=== PATIENT | male | born 1965 | race American Indian/Alaskan Native ===

== ENCOUNTER 2018-05-29 05:27 | Inpatient (IN) | payer MEDICAID, SELFPAY ==
[2018-05-29 05:33] VITALS: BMI 31.9
[2018-05-29] MEDS ORDERED: Albuterol-Ipratrop 3 mg / 0.5 (3 ml) UD IH STA (05:53)
--- NOTE | 2018-05-29 05:57 | ED PDOC ---
Arrival/HPI - General Chief Complaint: Shortness Of Breath Time Seen by Provider: 05/29/18 05:29 Historian: Patient - History of Present Illness Narrative History of Present Illness (Text): 05/29/18 05:50 Jaquan Oliva is a 52 year old male, whose past medical history includes asthma, COPD, hypertension, and anxiety, who presents to the Emergency department complaining of chest pain. Patient states he woke up this morning and began feeling dizzy with associated mid-sternal intermittent chest pain, shortness of breath, and diaphoresis. Patient reports a family history of cardiac disease and notes he has not had a stress test performed. Patient denies any fever, chills, nausea, vomiting, diarrhea, urinary symptoms, back pain, neck pain, headache, focal neurological deficits, or any other complaints. Symptom Onset: Gradual Symptom Course: Unchanged Activities at Onset: Light Context: Home Past Medical History - Provider Review Nursing Documentation Reviewed: Yes - Infectious Disease Hx of Infectious Diseases: None - Tetanus Immunization Tetanus Immunization: Unknown - Cardiac Hx Cardiac Disorders: Yes Hx Hypertension: Yes - Pulmonary Hx Respiratory Disorders: Yes Hx Asthma: Yes Hx Chronic Obstructive Pulmonary Disease (COPD): Yes Hx Emphysema: Yes - Musculoskeletal/Rheumatological Hx Falls: No - Psychiatric Hx Anxiety: Yes Hx Substance Use: No - Past Surgical History Past Surgical History: No Previous - Suicidal Assessment Feels Threatened In Home Enviroment: No Family/Social History - Physician Review Nursing Documentation Reviewed: Yes Family/Social History: Unknown Family HX Smoking Status: Light Smoker < 10 Cigarettes Daily Hx Alcohol Use: No Hx Substance Use: No Hx Substance Use Treatment: No Allergies/Home Meds Allergies/Adverse Reactions: Allergies No Known Allergies Allergy (Verified 05/29/18 05:33) Home Medications: Home Meds Medication Instructions Recorded Confirmed Aspirin [Adult Aspirin] 1 tab PO DAILY 05/29/18 05/29/18 Lisinopril [Zestril] 10 mg PO DAILY 05/29/18 05/29/18 cloNIDine [Catapres] 1 tab PO DAILY 05/29/18 05/29/18 Review of Systems - Physician Review All systems were reviewed & negative as marked: Yes - Review of Systems Constitutional: Normal. absent: Fevers Eyes: Normal ENT: Normal Respiratory: SOB Cardiovascular: Chest Pain Gastrointestinal: Normal. absent: Abdominal Pain, Diarrhea, Nausea, Vomiting Genitourinary Male: Normal. absent: Dysuria, Frequency, Hematuria, Urinary Output Changes Musculoskeletal: Normal. absent: Back Pain, Neck Pain Skin: Normal. absent: Rash Neurological: Dizziness Endocrine: Diaphoresis Hemo/Lymphatic: Normal Psychiatric: Normal Physical Exam Vital Signs Reviewed: Yes Temperature: Afebrile Blood Pressure: Normal Pulse: Regular Respiratory Rate: Normal Appearance: Positive for: Well-Appearing, Non-Toxic, Comfortable Pain Distress: None Mental Status: Positive for: Alert and Oriented X 3 - Systems Exam Head: Present: Atraumatic, Normocephalic Pupils: Present: PERRL Extroacular Muscles: Present: EOMI Conjunctiva: Present: Normal Mouth: Present: Moist Mucous Membranes Neck: Present: Normal Range of Motion Respiratory/Chest: Present: Wheezes (Wheezing bilaterally). No: Respiratory Distress, Accessory Muscle Use Cardiovascular: Present: Regular Rate and Rhythm, Normal S1, S2. No: Murmurs Abdomen: No: Tenderness, Distention, Peritoneal Signs Back: Present: Normal Inspection Upper Extremity: Present: Normal Inspection. No: Cyanosis, Edema Lower Extremity: Present: Normal Inspection. No: Edema Neurological: Present: GCS=15, CN II-XII Intact, Speech Normal Skin: Present: Warm, Dry, Normal Color. No: Rashes Psychiatric: Present: Alert, Oriented x 3, Normal Insight, Normal Concentration Medical Decision Making ED Course and Treatment: 05/29/18 05:50 Impression: 52 year old male complaining of chest pain, shortness of breath, dizziness, and diaphoresis. Plan: -- EKG -- Chest X-ray -- Labs, BNP, cardiac enzymes, D-dimer -- Duoneb -- Reassess and disposition Prior Visits: Notes and results from previous visits were reviewed. Progress Notes: Reviewed EKG, NSR at 84 bpm. Occasional PAC. Non-specific ST/T wave changes. 05/29/18 06:56 Patient Diff. DX includes cor insufficiency/COPD/Bronchitis.Given presenting complaints/risk factors will place on observation for further treatment/evaluation.Case endorsed to oncoming attending to endorse to hospitalist. - EKG Interpretation Interpreted by ED Physician: Yes Type: 12 lead EKG - Scribe Statement The provider has reviewed the documentation as recorded by the Damari Owens Provider Scribe Attestation: All medical record entries made by the Scribe were at my direction and personally dictated by me. I have reviewed the chart and agree that the record accurately reflects my personal performance of the history, physical exam, medical decision making, and the department course for this patient. I have also personally directed, reviewed, and agree with the discharge instructions and disposition. Disposition/Present on Arrival - Present on Arrival Any Indicators Present on Arrival: No History of DVT/PE: No History of Uncontrolled Diabetes: No Urinary Catheter: No History of Decub. Ulcer: No History Surgical Site Infection Following: None - Disposition Have Diagnosis and Disposition been Completed?: Yes Diagnosis: Chest pain, COPD (chronic obstructive pulmonary disease) Disposition: HOSPITALIZED Disposition Time: 06:56 Patient Problems: Current Active Problems Problem Status Onset COPD (chronic obstructive pulmonary disease) Acute Chest pain Acute Condition: STABLE Discharge Instructions (ExitCare): Chest Pain (ED) Referrals: Adam Richard MD [Primary Care Provider] - Follow up with primary Forms: [employer] (Arabic)
[2018-05-29 06:18] LABS: HEMOGLOBIN 14.3 g/dL (14.0-18.0); MEAN CELL VOLUME 84.9 fl (80.0-105.0); MEAN CORPUSCULAR HEMOGLOBIN 28.8 pg (25.0-35.0); RBC 4.96 10^6/uL (3.5-6.1); RED CELL DISTRIBUTION WIDTH 13.8 % (11.5-14.5); WHITE BLOOD COUNT 13.1 10^3/uL (4.5-11.0)
[2018-05-29 06:21] LABS: ALB/GLOB RATIO 1.4 (1.1-1.8); ALBUMIN 4.6 g/dL (3.0-4.8); ALT/SGPT 65 U/L (7-56); AST/SGOT 40 U/L (17-59); BLOOD UREA NITROGEN 17 mg/dL (7-21); CALCIUM 9.3 mg/dL (8.4-10.5); GFR NON-AFRICAN AMERICAN > 60
[2018-05-29 06:22] LABS: INR 1.01; PARTIAL THROMBOPLASTIN TIME 27.9 Seconds (25.1-36.5); PROTHROMBIN TIME 11.6 SECONDS (9.4-12.5)
[2018-05-29 06:26] LABS: D DIMER < 200 ng/mlDDU (0-243)
[2018-05-29 06:33] LABS: B-TYPE NATRIURETIC PEPTIDE 88.4 pg/mL (0-450); TROPONIN I 0.01 ng/mL
[2018-05-29 06:43] LABS: CK MB% 2.4 % (2.5-3.0)
--- NOTE | 2018-05-29 07:44 | CP.PCM.HP ---
<Shanon Johnson - Last Filed: 05/29/18 12:16> History of Present Illness - History of Present Illness History of Present Illness: Shanon Johnson, PGY2, H&P for Dr Diez: CC: chest pain 52 year old male with PMH asthma, COPD (requiring 2 prior intubations, last one 2013), HTN, anxiety, panic attacks, presents for left sided chest pain that started this morning. Patient states that he woke up from sleep for work this morning and the pain began 30 mins after waking up. Describes it as sharp, 5- 6/10, associated with mild dizziness, shortness of breath, tingling of her bilateral fingers. Denies syncope, palpitations, nausea, vomiting, abdominal pain, lower extremity edema. The episode lasted 5-10 mins. Denies association with exertion. Patient states that he has been having similar episodes for past 6 months. States that he possibly had a stress test many years ago and was "normal." Denies drinking any alcohol or other substances the previous night. States that he has been using his nebulizer often at home for past few days. States that he has been depressed the past few months due to his home situation with his partner and son. However, patient denies suicidal ideations. 12 point ROS obtained and negative, except as per HPI. 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 Smokes 4-5 ciggs/day for past 25 years. Social alcohol use. Denies drug use. Lives with partner, son. Pharmacy: [facility] Insurance: [employer] (Medicaid) Present on Admission - Present on Admission Any Indicators Present on Admission: No History of DVT/PE: No History of Uncontrolled Diabetes: No Urinary Catheter: No Decubitus Ulcer Present: No Review of Systems - Review of Systems All systems: reviewed and no additional remarkable complaints except Review of Systems: as per HPI Past Patient History - Infectious Disease Hx of Infectious Diseases: None - Tetanus Immunizations Tetanus Immunization: Unknown - Past Social History Smoking Status: Light Smoker < 10 Cigarettes Daily - CARDIAC Hx Cardiac Disorders: Yes Hx Hypertension: Yes - PULMONARY Hx Respiratory Disorders: Yes Hx Asthma: Yes Hx Chronic Obstructive Pulmonary Disease (COPD): Yes Hx Emphysema: Yes - MUSCULOSKELETAL/RHEUMATOLOGICAL Hx Falls: No - PSYCHIATRIC Hx Anxiety: Yes Hx Substance Use: No Meds Allergies/Adverse Reactions: Allergies Allergy/AdvReac Type Severity Reaction Status Date / Time No Known Allergies Allergy Verified 05/29/18 12:43 Physical Exam - Constitutional Appears: Non-toxic, No Acute Distress - Head Exam Head Exam: ATRAUMATIC, NORMOCEPHALIC - Eye Exam Eye Exam: EOMI, PERRL. absent: Conjunctival injection, Nystagmus, Scleral icterus - ENT Exam ENT Exam: Mucous Membranes Moist - Neck Exam Neck exam: Positive for: Full Rom - Respiratory Exam Respiratory Exam: Wheezes (bilateral, expiratory). absent: Accessory Muscle Use, Rhonchi, Respiratory Distress - Cardiovascular Exam Cardiovascular Exam: RRR, +S1, +S2. absent: Systolic Murmur - GI/Abdominal Exam GI & Abdominal Exam: Normal Bowel Sounds, Soft. absent: Diminished Bowel Sounds, Distended, Firm, Guarding, Rigid, Tenderness - Extremities Exam Extremities exam: Positive for: normal inspection. Negative for: calf tenderness, pedal edema - Back Exam Back exam: NORMAL INSPECTION - Neurological Exam Neurological exam: Alert, CN II-XII Intact, Oriented x3 - Psychiatric Exam Additional comments: drowsy - Skin Skin Exam: Normal Color, Warm Results - Vital Signs Recent Vital Signs: Last Vital Signs Temp 98 F 05/29/18 05:35 Pulse 87 05/29/18 05:35 Resp 20 05/29/18 05:40 BP 165/95 H 05/29/18 05:35 Pulse Ox 100 05/29/18 05:40 - Labs Result Diagrams: 05/29/18 05:50 05/29/18 05:50 Labs: Laboratory Results - last 24 hr 05/29/18 05/29/18 05/29/18 05:50 05:50 05:50 WBC 13.1 H RBC 4.96 Hgb 14.3 Hct 42.1 MCV 84.9 MCH 28.8 MCHC 34.0 RDW 13.8 Plt Count 327 MPV 10.0 PT 11.6 INR 1.01 APTT 27.9 D-Dimer, Quantitative < 200 Sodium 142 Potassium 3.9 Chloride 102 Carbon Dioxide 31 Anion Gap 13 BUN 17 Creatinine 0.8 Est GFR ( Amer) > 60 Est GFR (Non-Af Amer) > 60 POC Glucose (mg/dL) Random Glucose 127 H Calcium 9.3 Total Bilirubin 0.6 AST 40 ALT 65 H Alkaline Phosphatase 81 Lactate Dehydrogenase 719 H Total Creatine Kinase 412 H CK-MB (CK-2) 10.0 H CK-MB (CK-2) % 2.4 L Troponin I 0.01 NT-Pro-B Natriuret Pep 88.4 Total Protein 7.9 Albumin 4.6 Globulin 3.3 Albumin/Globulin Ratio 1.4 05/29/18 05:50 WBC RBC Hgb Hct MCV MCH MCHC RDW Plt Count MPV PT INR APTT D-Dimer, Quantitative Sodium Potassium Chloride Carbon Dioxide Anion Gap BUN Creatinine Est GFR ( Amer) Est GFR (Non-Af Amer) POC Glucose (mg/dL) 132 H Random Glucose Calcium Total Bilirubin AST ALT Alkaline Phosphatase Lactate Dehydrogenase Total Creatine Kinase CK-MB (CK-2) CK-MB (CK-2) % Troponin I NT-Pro-B Natriuret Pep Total Protein Albumin Globulin Albumin/Globulin Ratio Assessment & Plan - Assessment and Plan (Free Text) Assessment: 52 year old male with PMH COPD, HTN, anxiety, panic attacks, presents for chest pain, shortness of breath: Chest pain: likely anxiety vs pleuritic vs rule out ACS - initial troponin 0.01-<0.01, EKG shows HR 87, Occasional PAC. Non-specific ST/T wave changes. - f/u next troponin - lipid panel, TSH, Hgb A1C - Cardiology consulted. F/u recs. - d dimer negative - Remote tele monitoring Shortness of breath: 2/2 COPD exacerbation - Solumedrol 40 mg IV q 12 - pulmicort, brovana - duoneb q 4 lucius, and q6 prn - supplemental oxygen via nasal cannula - monitor Possible alcohol withdrawal: - CIWA protocol - ativan 0.5 mg prn - alcohol level negative - Multivitamin - will monitor Hx of HTN: - will stop IVF - continue home meds clonidine, lisinopril, ASA 81 mg Case seen and discussed with attending, Dr Diez. <Liset Diez - Last Filed: 05/29/18 15:02> Results - Vital Signs Recent Vital Signs: Last Vital Signs Temp 98.1 F 05/29/18 09:03 Pulse 99 H 05/29/18 11:46 Resp 16 05/29/18 11:22 BP 170/89 H 05/29/18 11:44 Pulse Ox 98 05/29/18 09:03 - Labs Result Diagrams: 05/29/18 05:50 05/29/18 05:50 Labs: Laboratory Results - last 24 hr 05/29/18 05/29/18 05/29/18 05:50 05:50 05:50 WBC 13.1 H RBC 4.96 Hgb 14.3 Hct 42.1 MCV 84.9 MCH 28.8 MCHC 34.0 RDW 13.8 Plt Count 327 MPV 10.0 PT 11.6 INR 1.01 APTT 27.9 D-Dimer, Quantitative < 200 pCO2 pO2 HCO3 ABG pH ABG Total CO2 ABG O2 Saturation ABG O2 Content ABG Base Excess ABG Hemoglobin ABG Carboxyhemoglobin POC ABG HHb (Measured) ABG Methemoglobin ABG O2 Capacity Hgb O2 Saturation FiO2 Sodium 142 Potassium 3.9 Chloride 102 Carbon Dioxide 31 Anion Gap 13 BUN 17 Creatinine 0.8 Est GFR ( Amer) > 60 Est GFR (Non-Af Amer) > 60 POC Glucose (mg/dL) Random Glucose 127 H Hemoglobin A1c Calcium 9.3 Total Bilirubin 0.6 AST 40 ALT 65 H Alkaline Phosphatase 81 Lactate Dehydrogenase 719 H Total Creatine Kinase 412 H CK-MB (CK-2) 10.0 H CK-MB (CK-2) % 2.4 L Troponin I 0.01 NT-Pro-B Natriuret Pep 88.4 Total Protein 7.9 Albumin 4.6 Globulin 3.3 Albumin/Globulin Ratio 1.4 Triglycerides Cholesterol LDL Cholesterol Direct HDL Cholesterol TSH 3rd Generation Alcohol, Quantitative 05/29/18 05/29/18 05/29/18 05:50 08:10 08:10 WBC RBC Hgb Hct MCV MCH MCHC RDW Plt Count MPV PT INR APTT D-Dimer, Quantitative pCO2 pO2 HCO3 ABG pH ABG Total CO2 ABG O2 Saturation ABG O2 Content ABG Base Excess ABG Hemoglobin ABG Carboxyhemoglobin POC ABG HHb (Measured) ABG Methemoglobin ABG O2 Capacity Hgb O2 Saturation FiO2 Sodium Potassium Chloride Carbon Dioxide Anion Gap BUN Creatinine Est GFR ( Amer) Est GFR (Non-Af Amer) POC Glucose (mg/dL) 132 H Random Glucose Hemoglobin A1c Calcium Total Bilirubin AST ALT Alkaline Phosphatase Lactate Dehydrogenase Total Creatine Kinase CK-MB (CK-2) CK-MB (CK-2) % Troponin I NT-Pro-B Natriuret Pep Total Protein Albumin Globulin Albumin/Globulin Ratio Triglycerides 83 Cholesterol 184 LDL Cholesterol Direct 95 HDL Cholesterol 62 H TSH 3rd Generation Alcohol, Quantitative < 10 05/29/18 05/29/18 05/29/18 08:10 09:23 11:35 WBC RBC Hgb Hct MCV MCH MCHC RDW Plt Count MPV PT INR APTT D-Dimer, Quantitative pCO2 55 H pO2 81.0 HCO3 29.7 H ABG pH 7.34 L ABG Total CO2 31.4 H ABG O2 Saturation 98.8 H ABG O2 Content 17.7 ABG Base Excess 2.6 ABG Hemoglobin 13.6 ABG Carboxyhemoglobin 5.9 H POC ABG HHb (Measured) 1.1 ABG Methemoglobin 0.8 ABG O2 Capacity 17.9 Hgb O2 Saturation 92.3 L FiO2 32.0 Sodium Potassium Chloride Carbon Dioxide Anion Gap BUN Creatinine Est GFR ( Amer) Est GFR (Non-Af Amer) POC Glucose (mg/dL) Random Glucose Hemoglobin A1c 6.1 Calcium Total Bilirubin AST ALT Alkaline Phosphatase Lactate Dehydrogenase Total Creatine Kinase CK-MB (CK-2) CK-MB (CK-2) % Troponin I < 0.01 NT-Pro-B Natriuret Pep Total Protein Albumin Globulin Albumin/Globulin Ratio Triglycerides Cholesterol LDL Cholesterol Direct HDL Cholesterol TSH 3rd Generation Alcohol, Quantitative 05/29/18 13:00 WBC RBC Hgb Hct MCV MCH MCHC RDW Plt Count MPV PT INR APTT D-Dimer, Quantitative pCO2 pO2 HCO3 ABG pH ABG Total CO2 ABG O2 Saturation ABG O2 Content ABG Base Excess ABG Hemoglobin ABG Carboxyhemoglobin POC ABG HHb (Measured) ABG Methemoglobin ABG O2 Capacity Hgb O2 Saturation FiO2 Sodium Potassium Chloride Carbon Dioxide Anion Gap BUN Creatinine Est GFR ( Amer) Est GFR (Non-Af Amer) POC Glucose (mg/dL) Random Glucose Hemoglobin A1c Calcium Total Bilirubin AST ALT Alkaline Phosphatase Lactate Dehydrogenase Total Creatine Kinase CK-MB (CK-2) CK-MB (CK-2) % Troponin I NT-Pro-B Natriuret Pep Total Protein Albumin Globulin Albumin/Globulin Ratio Triglycerides Cholesterol LDL Cholesterol Direct HDL Cholesterol TSH 3rd Generation 0.84 Alcohol, Quantitative Attending/Attestation - Attestation I have personally seen and examined this patient.: Yes I have fully participated in the care of the patient.: Yes I have reviewed all pertinent clinical information: Yes Notes (Text): 05/29/18 14:57 52 year old male with past medical history of COPD, hypertension, and anxiety who presents with complaint of chest pain and shortness of breath. Admitted for COPD exacerbation and to rule out ACS. Serial cardiac enzymes are ordered and cardiology evaluation is requested. Continue with iv steroids and duonebs. Continue with pulmicort and brovana. He was counselled on smoking and alcohol cessation. Liset Diez MD Hospitalist.
[2018-05-29] MEDS ORDERED: Sodium Chloride 0.9% 1,000 ML IV SCH (08:30)
[2018-05-29 08:49] LABS: HDL CHOLESTEROL 62 mg/dL (29-60)
[2018-05-29 09:00] LABS: LDL CHOLESTEROL 95 mg/dL (0-129)
[2018-05-29] MEDS ORDERED: MethylPREDNISolone 40 mg Vial IVP STA (09:14)
[2018-05-29] MEDS ORDERED: Albuterol-Ipratrop 3 mg / 0.5 (3 ml) UD IH SCH (09:15)
--- NOTE | 2018-05-29 09:16 | RAD ---
Date of service: 05/29/2018 HISTORY: Chest pain COMPARISON: No prior. FINDINGS: LUNGS: The lungs are well inflated and clear. PLEURA: No pleural effusions or pneumothorax. CARDIOVASCULAR: The heart is normal in size. No aortic atherosclerotic calcifications present. OSSEOUS STRUCTURES: Within normal limits for the patient's age. VISUALIZED UPPER ABDOMEN: Normal. OTHER FINDINGS: None. IMPRESSION: No active pulmonary disease.
[2018-05-29 09:46] LABS: ARTERIAL BLOOD GAS HCO3 29.7 mmol/L (21-28); ARTERIAL BLOOD GAS HEMOGLOBIN 13.6 g/dL (11.7-17.4); ARTERIAL BLOOD GAS O2 CAPACITY 17.9 mL/dl (16-24); ARTERIAL BLOOD GAS O2 CONTENT 17.7 ML/dl (15-23); ARTERIAL BLOOD GAS O2 SAT 98.8 % (95-98); ARTERIAL BLOOD GAS PCO2 55 mm/Hg (35-45); ARTERIAL BLOOD GAS PH 7.34 (7.35-7.45); ARTERIAL BLOOD GAS TCO2 31.4 mmol.L (22-28)
[2018-05-29] MEDS: Albuterol-Ipratrop 3 mg / 0.5 (3 ml) UD IH SCH ×3 (10:37→21:46)
--- NOTE | 2018-05-29 10:56 | CARD ---
APPROVED REPORT Date of service: 05/29/2018 EKG Measurement Heart [id number] <Conclusion> Sinus rhythm with premature atrial complexes Possible Left atrial enlargement Borderline ECG
[2018-05-29] MEDS ORDERED: Multivitamin Therapeutic Tab PO STA (11:34)
[2018-05-29] MEDS: Albuterol-Ipratrop 3 mg / 0.5 (3 ml) UD IH PRN (14:43)
--- NOTE | 2018-05-29 16:54 | CON ---
DATE: 05/29/2018 CARDIOLOGY CONSULTATION HISTORY: The patient is a 52-year-old male, who presents with shortness of breath secondary to asthma. The patient continues to be an active smoker. In addition, he complains of fleeting chest pain that goes as the patient states different parts of his chest. The patient has no previous myocardial infarction. No diabetes mellitus, but does suffer from hypertension, which he is on Zestril and Catapres. Currently, the patient is obtaining bronchodilators. His symptoms are predominately in the left shoulder at this time. SOCIAL HISTORY: He is an active smoker. REVIEW OF SYSTEMS: Fourteen-point review of systems is reviewed in detail. Other than these above symptoms, the patient is beginning to demand his benzodiazepines. PHYSICAL EXAMINATION: VITAL SIGNS: Blood pressure is 170/89, heart rates in the 90s. NECK: Negative JVD. LUNGS: Without rales. HEART: With S1, S2. EXTREMITIES: Without edema. EKG shows normal sinus rhythm with nonspecific ST-T changes. LABORATORY DATA: Hemoglobin is 14.3. Chemistries: Troponins are negative x2. BUN and creatinine unremarkable. Glucose is 127. IMPRESSION: 1. Asthma. 2. Questionable chronic obstructive pulmonary disease. 3. Nicotine addiction. 4. Hypertension. 5. Atypical chest pain symptoms, which are pleuritic in nature. There is no evidence for acute coronary syndrome. Given these findings, the patient's treatment needs to be directed at his bronchospasm. I have discussed with the patient about his need to stop smoking. We will continue on his clonidine as well as his Zestril for blood pressure control. Aj Olsen MD
[2018-05-29] MEDS: Budesonide 0.5 mg/2 ml Inhal Susp UD IH SCH (20:32)
[2018-05-29] MEDS ORDERED: Pneumococcal 23-Valent Vaccine IM ONE (20:37)
[2018-05-29] MEDS ORDERED: Influenza Vaccine 60 mcg/0.5 mL SYR (4YR UP) IM ONE (20:37)
[2018-05-29 21:04] LABS: BARBITURATES, UR NEGATIVE (NEGATIVE); BENZODIAZEPINES, UR POSITIVE (NEGATIVE); OPIATES, UR POSITIVE (NEGATIVE); PHENCYCLIDINE, UR NEGATIVE (NEGATIVE)
[2018-05-29] MEDS: MethylPREDNISolone 40 mg Vial IVP SCH (21:45)
[2018-05-29] MEDS: Arformoterol 15 mcg/2 ml Inh Sol IH SCH (21:46)
[2018-05-30] MEDS: Albuterol-Ipratrop 3 mg / 0.5 (3 ml) UD IH SCH ×7 (01:27→20:37)
[2018-05-30] MEDS: Albuterol-Ipratrop 3 mg / 0.5 (3 ml) UD IH PRN ×2 (01:57→17:37)
[2018-05-30] MEDS: Arformoterol 15 mcg/2 ml Inh Sol IH SCH ×3 (06:48→20:37)
[2018-05-30] MEDS: Budesonide 0.5 mg/2 ml Inhal Susp UD IH SCH ×3 (06:49→20:38)
[2018-05-30 07:30] LABS: GRAN # 7.41 (1.4-6.5); GRAN % 88.2 % (50.0-68.0); HEMOGLOBIN 13.7 g/dL (14.0-18.0); LYMPH # 0.8 (1.2-3.4); LYMPH % 9.3 % (22.0-35.0); MEAN CORPUSCULAR HEMOGLOBIN 28.2 pg (25.0-35.0); MEAN CORPUSCULAR HGB CONC 33.2 g/dl (31.0-37.0); MEAN PLATELET VOLUME 10.2 fl (7.0-11.0); MONO # 0.2 (0.1-0.6); MONO % 2.5 % (1.0-6.0); RBC 4.86 10^6/uL (3.5-6.1); WHITE BLOOD COUNT 8.4 10^3/uL (4.5-11.0)
[2018-05-30 08:06] LABS: ALB/GLOB RATIO 1.4 (1.1-1.8); ALBUMIN 4.5 g/dL (3.0-4.8); ALT/SGPT 54 U/L (7-56); AST/SGOT 28 U/L (17-59); BLOOD UREA NITROGEN 16 mg/dL (7-21); CALCIUM 9.7 mg/dL (8.4-10.5); GFR NON-AFRICAN AMERICAN > 60
[2018-05-30] MEDS: Multivitamin Therapeutic Tab PO SCH (09:24)
[2018-05-30] MEDS: MethylPREDNISolone 40 mg Vial IVP SCH ×2 (09:24→21:58)
[2018-05-30] MEDS ORDERED: Levalbuterol 1.25 MG/3 ML Inhal Soln UD IH STA (09:52)
--- NOTE | 2018-05-30 13:15 | CP.PCM.PN ---
<Juan J Kuhn - Last Filed: 05/30/18 13:11> Subjective - Date & Time of Evaluation Date of Evaluation: 05/30/18 Time of Evaluation: 08:00 - Subjective Subjective: Juan J Kuhn, PGY1 Medicine Progress Note for Dr. Diez Patient was seen and examined at bedside this morning. HR was 112 and BP noted to be 157/89 prior to interview. Otherwise, patient claimed he had some shortness of breath going to the restroom overnight. Patient still endorses sob during interview and low extremity numbness in the legs related to his herniated discs. Otherwise, denies cp, abdominal pain, n/v/d. Tolerating diet well. A full 12 point ROS was conducted and unremarkable except as stated above. Objective - Vital Signs/Intake and Output Vital Signs (last 24 hours): Temp Pulse Resp BP Pulse Ox 98.5 F 118 H 20 170/108 H 100 05/30/18 06:00 05/30/18 11:36 05/30/18 11:00 05/30/18 11:36 05/30/18 11:00 Intake and Output: 05/30/18 05/30/18 06:59 18:59 Intake Total 360 Balance 360 - Medications Medications: Current Medications Albuterol/Ipratropium (Duoneb 3 Mg/0.5 Mg (3 Ml) Ud) 3 ml IH [id number] PRN PRN Reason: Shortness of Breath Last Admin: 05/30/18 01:57 Dose: 3 ml Albuterol/Ipratropium (Duoneb 3 Mg/0.5 Mg (3 Ml) Ud) 3 ml IH [id number] [facility] Last Admin: 05/30/18 09:53 Dose: 3 ml Amlodipine Besylate (Norvasc) 5 mg PO DAILY [facility] Last Admin: 05/30/18 11:36 Dose: 5 mg Arformoterol Tartrate (Brovana) 15 mcg IH [id number] [facility] Last Admin: 05/30/18 08:17 Dose: 15 mcg Aspirin (Ecotrin) 81 mg PO DAILY [facility] Last Admin: 05/30/18 09:24 Dose: 81 mg Budesonide (Pulmicort Respules) 0.5 mg IH [id number] [facility] Last Admin: 05/30/18 08:17 Dose: 0.5 mg Clonidine HCl (Catapres) 0.2 mg PO BID [facility] Last Admin: 05/30/18 09:24 Dose: 0.2 mg Famotidine (Pepcid) 40 mg PO HS [facility] Ibuprofen (Motrin Tab) 200 mg PO Q6H PRN PRN Reason: Pain, moderate (4-7) Lisinopril (Zestril) 40 mg PO DAILY [facility] Last Admin: 05/30/18 09:26 Dose: 40 mg Lorazepam (Ativan) 0.5 mg IVP Q6H PRN; Protocol PRN Reason: Agitation Methylprednisolone (Solu-Medrol) 40 mg IVP Q12 [facility] Last Admin: 05/30/18 09:24 Dose: 40 mg Multivitamins (Thera Tab) 1 tab PO 0800 [facility] Last Admin: 05/30/18 09:24 Dose: 1 tab Nicotine (Nicoderm Cq) 1 patch TD DAILY [facility] Last Admin: 05/30/18 09:25 Dose: 1 patch - Labs Labs: 05/30/18 07:00 05/30/18 07:00 PT 11.6 SECONDS (9.4-12.5) 05/29/18 05:50 INR 1.01 05/29/18 05:50 APTT 27.9 Seconds (25.1-36.5) 05/29/18 05:50 - Constitutional Appears: No Acute Distress - Head Exam Head Exam: ATRAUMATIC, NORMAL INSPECTION, NORMOCEPHALIC - Eye Exam Eye Exam: EOMI, Normal appearance, PERRL - ENT Exam ENT Exam: Mucous Membranes Moist, Normal Exam - Respiratory Exam Respiratory Exam: Wheezes. absent: Accessory Muscle Use, Chest Wall Tenderness, Rales, Rhonchi - Cardiovascular Exam Cardiovascular Exam: RRR, +S1, +S2 - GI/Abdominal Exam GI & Abdominal Exam: Soft, Normal Bowel Sounds. absent: Tenderness - Extremities Exam Extremities Exam: Full ROM, Normal Capillary Refill, Normal Inspection. absent: Joint Swelling, Pedal Edema - Neurological Exam Neurological Exam: Alert, Awake, CN II-XII Intact, Normal Gait, Oriented x3 - Psychiatric Exam Psychiatric exam: Normal Affect, Normal Mood - Skin Skin Exam: Dry, Intact, Normal Color, Warm Assessment and Plan - Assessment and Plan (Free Text) Assessment: 52 year old male with PMH COPD, HTN, anxiety, panic attacks, herniated disc who presented to [facility] for chest pain and shortness of breath. Patient also found to be positive on drug screen for cocaine, benzos, and opiates. Plan: Chest pain and Tachycardia 2/2 cocaine use vs anxiety - r/o ACS - Counseled patient on importance of substance abuse cessation - c/w xanax 0.25 mg TID prn for anxiety - Cardiology is on consult. Appreciate recs - troponins negative x3 - Utox positive for opiates, benzos, and cocaine - No acute changes on EKG - lipid panel, TSH, Hgb A1C wnl - Remote tele monitoring SOB 2/2 COPD exacerbation - c/w Solumedrol 40 mg IV q 12, pulmicort, and brovana - c/w duoneb q 4 lucius, and q6 prn - Patient is still wheezing on exam and endorses shortness of breath - c/w supplemental oxygen via nasal cannula - c/w nicotine patch HTN - uncontrolled - added Norvasc 5mg - c/w home meds clonidine 0.2mg BID and Lisinopril 40mg daily - monitor BP Possible alcohol withdrawal: - CIWA protocol score 0 - Counseled on alcohol cessation - c/w ativan 0.5 mg q6 prn - alcohol level negative - c/w Multivitamin Diet: HHD GI ppx: pepcid Dispo: Continue to monitor patient on the floor. Case was discussed and reviewed with attending, Dr Diez. <Liset Diez - Last Filed: 05/30/18 17:05> Objective - Vital Signs/Intake and Output Vital Signs (last 24 hours): Temp Pulse Resp BP Pulse Ox 98.7 F 124 H 22 166/111 H 98 05/30/18 16:31 05/30/18 16:31 05/30/18 16:31 05/30/18 16:31 05/30/18 16:31 Intake and Output: 05/30/18 05/30/18 06:59 18:59 Intake Total 360 Balance 360 - Medications Medications: Current Medications Albuterol/Ipratropium (Duoneb 3 Mg/0.5 Mg (3 Ml) Ud) 3 ml IH [id number] PRN PRN Reason: Shortness of Breath Last Admin: 05/30/18 01:57 Dose: 3 ml Albuterol/Ipratropium (Duoneb 3 Mg/0.5 Mg (3 Ml) Ud) 3 ml IH [id number] [facility] Last Admin: 05/30/18 14:48 Dose: 3 ml Amlodipine Besylate (Norvasc) 5 mg PO DAILY [facility] Last Admin: 05/30/18 11:36 Dose: 5 mg Arformoterol Tartrate (Brovana) 15 mcg IH [id number] [facility] Last Admin: 05/30/18 08:17 Dose: 15 mcg Aspirin (Ecotrin) 81 mg PO DAILY [facility] Last Admin: 05/30/18 09:24 Dose: 81 mg Budesonide (Pulmicort Respules) 0.5 mg IH [id number] [facility] Last Admin: 05/30/18 08:17 Dose: 0.5 mg Clonidine HCl (Catapres) 0.3 mg PO BID [facility] Famotidine (Pepcid) 40 mg PO HS [facility] Ibuprofen (Motrin Tab) 200 mg PO Q6H PRN PRN Reason: Pain, moderate (4-7) Lisinopril (Zestril) 50 mg PO DAILY [facility] Lorazepam (Ativan) 0.5 mg IVP Q6H PRN; Protocol PRN Reason: Agitation Last Admin: 05/30/18 14:23 Dose: 0.5 mg Lorazepam (Ativan) 1 mg IVP Q6H PRN; Protocol PRN Reason: Anxiety Methylprednisolone (Solu-Medrol) 40 mg IVP Q12 [facility] Last Admin: 05/30/18 09:24 Dose: 40 mg Multivitamins (Thera Tab) 1 tab PO 0800 [facility] Last Admin: 05/30/18 09:24 Dose: 1 tab Nicotine (Nicoderm Cq) 1 patch TD DAILY [facility] Last Admin: 05/30/18 09:25 Dose: 1 patch - Labs Labs: 05/30/18 07:00 05/30/18 07:00 PT 11.6 SECONDS (9.4-12.5) 05/29/18 05:50 INR 1.01 05/29/18 05:50 APTT 27.9 Seconds (25.1-36.5) 05/29/18 05:50 Attending/Attestation - Attestation I have personally seen and examined this patient.: Yes I have fully participated in the care of the patient.: Yes I have reviewed all pertinent clinical information, including history, physical exam and plan: Yes Notes (Text): 05/30/18 17:02 52 year old male with past medical history of COPD, hypertension, and anxiety who presented with complaint of chest pain and shortness of breath. Admitted for COPD exacerbation and started on duonebs with iv steroids. Serial cardiac enzymes were negative and ACS has been ruled out. Today he still complains of dysnea with minimal exertion. Cardiology is following and ordered echocardiogram. He is hypertensive and tachycardic, possibly secondary to withdrawal. Urine drug screen was positive for cocaine, opiates and benzodiazepines. He is on ativan prn. Lisinopril and clonidine doses were increased today. He was counselled on smoking and alcohol cessation. He was counselled on risks of continued substance abuse, although he denies use of. Liset Diez MD Hospitalist.
--- NOTE | 2018-05-30 13:17 | CARD ---
APPROVED REPORT Date of service: 05/30/2018 EKG Measurement Heart [id number] <Conclusion> Sinus tachycardia Possible Left atrial enlargement Nonspecific ST and T wave abnormality Abnormal ECG
--- NOTE | 2018-05-30 17:37 | CARD ---
APPROVED REPORT Date of service: 05/30/2018 EXAM: Two-dimensional and M-mode echocardiogram with Doppler and color Doppler. INDICATION Dyspnea 2D DIMENSIONS Left Atrium (2D)3.6 (1.6-4.0cm)IVSd1.1 (0.7-1.1cm) LVDd3.7 (3.9-5.9cm)PWd1.3 (0.7-1.1cm) LVDs2.5 (2.5-4.0cm)FS (%) 31.7 % LVEF (%)60.6 (>50%) M-Mode DIMENSIONS Aortic Root3.40 (2.2-3.7cm)Aortic Cusp Exc.2.00 (1.5-2.0cm) Aortic Valve AoV Peak Jicceoti021.0cm/[place] Peak GR.12mmHgLVOT Peak Yhzjovzh359.0cm/s LVOT VTI21.60cm Mitral Valve MV E Ybbrusse48.5cm/sMV A Kthtrpil818.0cm/sE/A ratio0.6 TDI Lateral E' Peak V8.97cm/sMedial E' Peak V9.55cm/sE/Lateral E'10.3 E/Medial E'9.7 Pulmonary Valve PV Peak Xnbzhvhn22.8cm/sPV Peak Grad.4mmHg Tricuspid Valve TR Peak Xfwubpoc692ab/sRAP GQMEGRLQ29pkIyVD Peak Gr.35mmHg VOKS27kfPk LEFT VENTRICLE The left ventricle is normal size. There is normal left ventricular wall thickness. The left ventricular function is normal. The left ventricular ejection fraction is within the normal range. There is normal LV segmental wall motion. Transmitral Doppler flow pattern is Grade I-abnormal relaxation pattern. RIGHT VENTRICLE The right ventricle is normal size. There is normal right ventricular wall thickness. The right ventricular systolic function is normal. ATRIA The left atrium size is normal. The right atrium size is normal. AORTIC VALVE The aortic valve is not well visualized and it may be bicuspid. No aortic regurgitation is present. There is no aortic valvular stenosis. MITRAL VALVE The mitral valve is normal in structure. There is no mitral valve regurgitation noted. There is no mitral valve stenosis. TRICUSPID VALVE There is mild tricuspid regurgitation. There is mild to moderate pulmonary hypertension. PULMONIC VALVE The pulmonary valve is normal in structure. GREAT VESSELS The aortic root is normal in size. The IVC is normal in size and collapses >50% with inspiration. PERICARDIAL EFFUSION There is a small loculated anterior pericardial effusion. <Conclusion> There is normal left ventricular wall thickness. The left ventricular function is normal. The left ventricular ejection fraction is within the normal range. There is normal LV segmental wall motion. Transmitral Doppler flow pattern is Grade I-abnormal relaxation pattern. There is mild tricuspid regurgitation. There is mild to moderate pulmonary hypertension.
[2018-05-31] MEDS: Albuterol-Ipratrop 3 mg / 0.5 (3 ml) UD IH SCH ×7 (00:33→23:56)
[2018-05-31 02:21] LABS: URINE BILIRUBIN NEGATIVE (NEGATIVE); URINE BLOOD TRACE-INTACT (NEGATIVE); URINE GLUCOSE (UA) NEGATIVE (NEGATIVE); URINE LEUKOCYTE ESTERASE NEGATIVE Leu/uL (NEGATIVE); URINE PROTEIN NEGATIVE mg/dL (<30 mg/dL); URINE UROBILINOGEN 0.2 E.U./dL (<1 E.U./dL)
[2018-05-31 02:26] LABS: URINE APPEARANCE CLEAR (CLEAR); URINE COLOR YELLOW (YELLOW)
[2018-05-31 02:34] LABS: URINE EPITHELIAL CELLS 0 - 2 /hpf (0-5); URINE RBC 0 - 2 /hpf (0-2); URINE WBC 0 - 2 /hpf (0-6)
[2018-05-31 06:51] LABS: GRAN # 5.34 (1.4-6.5); GRAN % 79.1 % (50.0-68.0); HEMOGLOBIN 12.9 g/dL (14.0-18.0); LYMPH % 15.4 % (22.0-35.0); MEAN CELL VOLUME 84.2 fl (80.0-105.0); MEAN CORPUSCULAR HEMOGLOBIN 28.2 pg (25.0-35.0); MEAN CORPUSCULAR HGB CONC 33.5 g/dl (31.0-37.0); MONO # 0.4 (0.1-0.6); MONO % 5.5 % (1.0-6.0); RBC 4.57 10^6/uL (3.5-6.1); RED CELL DISTRIBUTION WIDTH 14.1 % (11.5-14.5); WHITE BLOOD COUNT 6.8 10^3/uL (4.5-11.0)
[2018-05-31 07:03] LABS: ALB/GLOB RATIO 1.4 (1.1-1.8); ALT/SGPT 46 U/L (7-56); AST/SGOT 31 U/L (17-59); BLOOD UREA NITROGEN 15 mg/dL (7-21); CALCIUM 9.2 mg/dL (8.4-10.5); GFR NON-AFRICAN AMERICAN > 60
[2018-05-31] MEDS: Budesonide 0.5 mg/2 ml Inhal Susp UD IH SCH ×2 (07:57→19:41)
[2018-05-31] MEDS: Arformoterol 15 mcg/2 ml Inh Sol IH SCH ×2 (07:57→19:41)
--- NOTE | 2018-05-31 08:21 | PN ---
DATE: 05/30/2018 CARDIOLOGY FOLLOWUP SUBJECTIVE: The patient denies chest pain, but continues to complain of shortness of breath. PHYSICAL EXAMINATION: VITAL SIGNS: Blood pressure is 167/110, heart rate is 100. NECK: Negative JVD. LUNGS: Bilateral rhonchi. HEART: Reveals S1, S2. EXTREMITIES: Without edema. LABORATORY DATA: White count is 8.4, hemoglobin is 13.7. Troponins are negative x2. IMPRESSION: 1. Dyspnea. 2. Hypertension. 3. Chronic obstructive pulmonary disease. 4. Nicotine addiction. 5. Resolution of chest pain. Given these findings, there is no evidence for acute coronary syndrome. The patient needs treatment for his bronchospasm. We will increase his clonidine to 0.3 b.i.d. The patient will need referral to a detox center to help with his multiple drug usage. We will obtain an echocardiogram to evaluate LV function. Aj Olsen MD
[2018-05-31] MEDS: Multivitamin Therapeutic Tab PO SCH (09:52)
[2018-05-31] MEDS: MethylPREDNISolone 40 mg Vial IVP SCH ×2 (09:52→21:13)
--- NOTE | 2018-05-31 17:02 | CP.PCM.PN ---
<Shanon Johnson - Last Filed: 05/31/18 16:59> Subjective - Date & Time of Evaluation Date of Evaluation: 05/31/18 Time of Evaluation: 14:00 - Subjective Subjective: Shanon Johnson, PGY2, Medicine Progress Note for Dr Diez: Patient seen and examined at bedside. Around 6 PM yesterday, patient had an episode of anxiety, diaphoresis, high BP requiring clonidine 0.3 mg and ativan 2 mg IV. This morning, patient states that he feels better. Denies chest pain, nausea, vomiting, fevers, chills, shortness of breath at rest. Though, patient does report that he get short of breath upon ambulating from the his bed to the bathroom and states he "wants home oxygen." Objective - Vital Signs/Intake and Output Vital Signs (last 24 hours): Temp Pulse Resp BP Pulse Ox 98.2 F 107 H 98 H 147/94 H 96 05/31/18 08:17 05/31/18 10:00 05/31/18 08:17 05/31/18 09:52 05/30/18 18:21 Intake and Output: 05/31/18 05/31/18 06:59 18:59 Intake Total 1560 Balance 1560 - Medications Medications: Current Medications Albuterol/Ipratropium (Duoneb 3 Mg/0.5 Mg (3 Ml) Ud) 3 ml IH [id number] PRN PRN Reason: Shortness of Breath Last Admin: 05/30/18 17:37 Dose: 3 ml Albuterol/Ipratropium (Duoneb 3 Mg/0.5 Mg (3 Ml) Ud) 3 ml IH [id number] [facility] Last Admin: 05/31/18 15:40 Dose: 3 ml Amlodipine Besylate (Norvasc) 5 mg PO STAT [facility] Stop: 05/31/18 16:58 Amlodipine Besylate (Norvasc) 10 mg PO DAILY [facility] Arformoterol Tartrate (Brovana) 15 mcg IH [id number] [facility] Last Admin: 05/31/18 07:57 Dose: 15 mcg Aspirin (Ecotrin) 81 mg PO DAILY [facility] Last Admin: 05/31/18 09:52 Dose: 81 mg Budesonide (Pulmicort Respules) 0.5 mg IH [id number] [facility] Last Admin: 05/31/18 07:57 Dose: 0.5 mg Clonidine HCl (Catapres) 0.3 mg PO BID [facility] Last Admin: 05/31/18 09:50 Dose: 0.3 mg Famotidine (Pepcid) 40 mg PO HS [facility] Last Admin: 05/30/18 21:57 Dose: 40 mg Ibuprofen (Motrin Tab) 200 mg PO Q6H PRN PRN Reason: Pain, moderate (4-7) Last Admin: 05/30/18 17:04 Dose: 200 mg Lisinopril (Zestril) 50 mg PO DAILY [facility] Last Admin: 05/31/18 09:51 Dose: 50 mg Lorazepam (Ativan) 1 mg IVP Q6H PRN; Protocol PRN Reason: Anxiety Last Admin: 05/31/18 14:22 Dose: 1 mg Methylprednisolone (Solu-Medrol) 30 mg IVP Q12 [facility] Multivitamins (Thera Tab) 1 tab PO 0800 [facility] Last Admin: 05/31/18 09:52 Dose: 1 tab Nicotine (Nicoderm Cq) 1 patch TD DAILY [facility] Last Admin: 05/31/18 09:53 Dose: 1 patch - Labs Labs: 05/31/18 06:25 05/31/18 06:25 PT 11.6 SECONDS (9.4-12.5) 05/29/18 05:50 INR 1.01 05/29/18 05:50 APTT 27.9 Seconds (25.1-36.5) 05/29/18 05:50 - Constitutional Appears: Non-toxic, No Acute Distress - Head Exam Head Exam: ATRAUMATIC, NORMOCEPHALIC - Eye Exam Eye Exam: EOMI, PERRL. absent: Conjunctival injection, Nystagmus, Scleral icterus Pupil Exam: NORMAL ACCOMODATION, PERRL. absent: Miosis, Mydriatic, Unequal - ENT Exam ENT Exam: Mucous Membranes Moist - Neck Exam Neck Exam: Full ROM - Respiratory Exam Respiratory Exam: Wheezes (mild expiratory wheezes on R lung) - Cardiovascular Exam Cardiovascular Exam: Tachycardia, RRR, +S1, +S2. absent: Murmur - GI/Abdominal Exam GI & Abdominal Exam: Soft, Normal Bowel Sounds. absent: Firm, Guarding, Rigid, Tenderness, Mass - Extremities Exam Extremities Exam: absent: Calf Tenderness, Pedal Edema - Back Exam Back Exam: NORMAL INSPECTION. absent: CVA tenderness (L), CVA tenderness (R) - Neurological Exam Neurological Exam: Alert, Awake, Oriented x3 - Psychiatric Exam Psychiatric exam: Anxious - Skin Skin Exam: Dry, Normal Color, Warm Assessment and Plan - Assessment and Plan (Free Text) Assessment: 52 year old male with PMH COPD, HTN, anxiety, panic attacks, presents for chest pain, shortness of breath. COPD exacerbation treated with solumedrol, duonebs lucius and prn. Troponins have been negativex3, with no EKG changes, ACS has been ruled out by Cardiology. Patient's UDS positive for cocaine, opiates and benzodiazepines. Patient is withdrawing from these agents, giving ativan prn: Chest pain: likely anxiety, pleurisy, ruled out ACS - Cardiology consult appreciated, signed off. - Echo normal EF. Grade 1 diastolic dysfunction. mild to moderate pulm HTN. - continue treatment of COPD, withdrawals COPD exacerbation: - continue with solumedrol 30 q 12, duonebs lucius and prn, pulmicort, brovana - PT eval recommends no oxygen. will wean him off NC. - monitor Polysubstance abuse: - recommended to stop usage, patient states that he will try to quit. - Ativan 1 mg q 6 IV prn - clonidine 0.3 mg bid - monitor Hx of HTN: - BP high, secondary to likely withdrawal - ASA 81 mg - clonidine 0.3 mg bid - lisinopril 50 mg daily - increased norvasc to 10 mg daily - monitor PPX: Pepcid Patient ambulating in hallway. Case seen and discussed with attending, Dr Diez. <Liset Diez - Last Filed: 05/31/18 17:47> Objective - Vital Signs/Intake and Output Vital Signs (last 24 hours): Temp Pulse Resp BP Pulse Ox 98.2 F 100 H 98 H 146/98 H 96 05/31/18 08:17 05/31/18 17:12 05/31/18 08:17 05/31/18 17:12 05/30/18 18:21 Intake and Output: 05/31/18 05/31/18 06:59 18:59 Intake Total 1560 Balance 1560 - Medications Medications: Current Medications Albuterol/Ipratropium (Duoneb 3 Mg/0.5 Mg (3 Ml) Ud) 3 ml IH [id number] PRN PRN Reason: Shortness of Breath Last Admin: 05/30/18 17:37 Dose: 3 ml Albuterol/Ipratropium (Duoneb 3 Mg/0.5 Mg (3 Ml) Ud) 3 ml IH [id number] [facility] Last Admin: 05/31/18 15:40 Dose: 3 ml Amlodipine Besylate (Norvasc) 10 mg PO 1130 [facility] Arformoterol Tartrate (Brovana) 15 mcg IH [id number] [facility] Last Admin: 05/31/18 07:57 Dose: 15 mcg Aspirin (Ecotrin) 81 mg PO DAILY [facility] Last Admin: 05/31/18 09:52 Dose: 81 mg Budesonide (Pulmicort Respules) 0.5 mg IH [id number] [facility] Last Admin: 05/31/18 07:57 Dose: 0.5 mg Clonidine HCl (Catapres) 0.3 mg PO BID [facility] Last Admin: 05/31/18 17:11 Dose: 0.3 mg Famotidine (Pepcid) 40 mg PO HS [facility] Last Admin: 05/30/18 21:57 Dose: 40 mg Ibuprofen (Motrin Tab) 200 mg PO Q6H PRN PRN Reason: Pain, moderate (4-7) Last Admin: 05/31/18 17:12 Dose: 200 mg Lisinopril (Zestril) 50 mg PO DAILY [facility] Last Admin: 05/31/18 09:51 Dose: 50 mg Lorazepam (Ativan) 1 mg IVP Q6H PRN; Protocol PRN Reason: Anxiety Last Admin: 05/31/18 14:22 Dose: 1 mg Methylprednisolone (Solu-Medrol) 30 mg IVP Q12 [facility] Multivitamins (Thera Tab) 1 tab PO 0800 [facility] Last Admin: 05/31/18 09:52 Dose: 1 tab Nicotine (Nicoderm Cq) 1 patch TD DAILY [facility] Last Admin: 05/31/18 09:53 Dose: 1 patch - Labs Labs: 05/31/18 06:25 05/31/18 06:25 PT 11.6 SECONDS (9.4-12.5) 05/29/18 05:50 INR 1.01 05/29/18 05:50 APTT 27.9 Seconds (25.1-36.5) 05/29/18 05:50 Attending/Attestation - Attestation I have personally seen and examined this patient.: Yes I have fully participated in the care of the patient.: Yes I have reviewed all pertinent clinical information, including history, physical exam and plan: Yes Notes (Text): 05/31/18 17:45 52 year old male with past medical history of COPD, hypertension, and anxiety who presented with complaint of chest pain and shortness of breath. Admitted for COPD exacerbation and started on duonebs with iv steroids. Serial cardiac enzymes were negative and ACS has been ruled out. Cardiology is following. Echocardiogram was reviewed. He was hypertensive and tachycardic, likely secondary to withdrawal. Urine drug screen was positive for cocaine, opiates and benzodiazepines. He is on ativan prn. He is also on norvasc, lisinopril and clonidine for hypertension. He was counselled on smoking and alcohol cessation. He was counselled on risks of continued substance abuse, although he denies use of. He still reports dyspnea on exertion and is on supplemental O2. Will attempt to wean off oxygen or perform 6 min walk test. Liset Diez MD Hospitalist.
[2018-06-01] MEDS: Albuterol-Ipratrop 3 mg / 0.5 (3 ml) UD IH SCH ×6 (03:08→23:50)
[2018-06-01 06:45] LABS: GRAN # 5.74 (1.4-6.5); GRAN % 75.4 % (50.0-68.0); HEMOGLOBIN 13.8 g/dL (14.0-18.0); LYMPH # 0.9 (1.2-3.4); LYMPH % 11.2 % (22.0-35.0); MEAN CORPUSCULAR HEMOGLOBIN 28.3 pg (25.0-35.0); MEAN CORPUSCULAR HGB CONC 33.7 g/dl (31.0-37.0); MEAN PLATELET VOLUME 10.3 fl (7.0-11.0); MONO % 13.4 % (1.0-6.0); RBC 4.88 10^6/uL (3.5-6.1); RED CELL DISTRIBUTION WIDTH 14.1 % (11.5-14.5); WHITE BLOOD COUNT 7.6 10^3/uL (4.5-11.0)
[2018-06-01 07:47] LABS: ALB/GLOB RATIO 1.3 (1.1-1.8); ALT/SGPT 43 U/L (7-56); AST/SGOT 26 U/L (17-59); BLOOD UREA NITROGEN 15 mg/dL (7-21); CALCIUM 9.5 mg/dL (8.4-10.5); GFR NON-AFRICAN AMERICAN > 60
[2018-06-01] MEDS: Arformoterol 15 mcg/2 ml Inh Sol IH SCH ×2 (07:50→19:32)
[2018-06-01] MEDS: Budesonide 0.5 mg/2 ml Inhal Susp UD IH SCH ×2 (07:50→19:33)
[2018-06-01] MEDS: Multivitamin Therapeutic Tab PO SCH (10:13)
[2018-06-01] MEDS: MethylPREDNISolone 40 mg Vial IVP SCH ×2 (10:14→22:46)
--- NOTE | 2018-06-01 15:04 | US ---
PROCEDURE: Right lower extremity venous US HISTORY: Leg pain and swelling. Evaluate for DVT. PHYSICIAN(S): Aj Peterson M.D. TECHNIQUE: Duplex sonography and color-flow Doppler with graded compression were used to evaluate the deep venous system of the right lower extremity. FINDINGS: The visualized deep venous system of the right lower extremity is sonographically normal and compressible. Normal waveforms and augmentation are seen. There is no sonographic evidence for deep venous thrombosis in the visualized segments of the right lower extremity. IMPRESSION: 1. No sonographic evidence for deep venous thrombosis in the visualized segments of the right lower extremity.
--- NOTE | 2018-06-01 15:18 | CON ---
DATE: 06/01/2018 HISTORY OF PRESENT ILLNESS: The patient is a 52-year-old male with history of depression and mostly anxiety, opiate abuse, possibly one prior psychiatric admission at [facility], his consult date is 02/2013, who was admitted to the medical floor after he presented for left-sided chest pain. Psychiatry was consulted because of acute anxiety. I reviewed recent notes and met with the patient at bedside. The patient is nourished and generally pleasant with this provider and demonstrates a fair focus. He is well oriented to month, year, location, and circumstances. The patient reports that he has almost daily panic attacks, feels out of control during these episodes, has shortness of breath, acute feelings of doom, lightheadedness, chest palpitations, and extremity numbness during these episodes. The patient has been experiencing panic attacks for years and reports his Xanax has generally been beneficial to curb these episodes. The patient reports that he also has been using heroin; however, he denies having any issue with opiate dependency. He indicates that he uses heroin when he is not able to deal with his anxiety. The patient is not currently in any psychiatric treatment. He denies feeling depressed, feels okay, however, he is very concerned about being able to control his anxiety symptoms. He presents as coherent and there has been no perceptual disturbance noted during the course of our conversation and while he reports that Xanax has been beneficial for him in the past, after I reviewed its half-life and dangerousness of withdrawal, the patient is open to trying a trial with Klonopin. He is resisting to taking standing medications for anxiety at this time. Insight and judgment are fair. Psychiatric history as noted, the patient reportedly was admitted after being seen by Dr. Melton as a contract consultant in 02/2013. At that time, he reported he was getting Xanax 2 mg twice a day by his primary care, Dr. Galarza, in [place]. The patient reports that although he has a history of COPD, his anxiety and panic attacks exacerbated COPD to the point that he needed prior intubations for them. I am not sure that this is legitimate. It is likely not legitimate; however, the patient is clearly anxious. The patient denies having any suicide attempts, although Dr. Melton's consultation from 2012 indicate that he tried overdosing and killing himself twice by using heroin. He has been hospitalized 4-6 days at [facility] on the medical floor for this overdosage, but was never transferred psychiatrically. The patient is not currently in any psychiatric care and does not receive any psychiatric medications and cannot recall any other beneficial psychiatric medication trials except for Xanax. His toxicology was positive for opiates, benzos, and cocaine on 05/29/2018. SOCIAL HISTORY: The patient was born and raised in [place]. He is single. He has 5 children; 3 girls and 2 boys. he has a history of opiate use as well, however, he does not feel that he has issues with opiate dependency as he feels that he takes the heroin to deal with his anxiety. The patient also occasionally uses cocaine. He denies any other drug use. The patient denies at this time any excessive alcohol use, however, I cannot prove or disprove this, although he does have a history of social alcohol use. He also has a history of blackouts from his alcohol use per prior records. Vital signs and labs were reviewed. Relevant psychiatric medications only include lorazepam 0.5 IV every 6 hours as needed. The patient appeared to receive one dose this morning at 10:46 a.m. and a number of other doses earlier at 03:20 a.m. and twice yesterday. IMPRESSION: Anxiety disorder, not otherwise specified; panic disorder, severe; rule out substance-induced anxiety disorder; the patient has a history of cocaine use as well as opiate use, likely opiate withdrawal as a contributing factor. The patient denies any current depression, though he does have a history of depression in past. RECOMMENDATIONS: I will recommend Klonopin 1 mg every 6 hours as needed for anxiety. I cannot provide a higher dose in this dose due to the patient's history of shortness of breath and history of COPD. Medications should be if the patient is acutely short of breath and systolic blood pressure is less than 100. Psychiatry will continue to follow up with the patient and see how he tolerates this medication and how his anxiety progresses. I did introduce the possibility of him being transferred to the psychiatric unit once he is medically cleared. He does not appear to interested, however, he did not outrightly refused this recommendation. The patient would benefit from admission; however, he does not require one and should he be medically cleared, he can be discharged to obtain a referral for outpatient management with a dual-treatment program for both substance abuse and mood disorder/anxiety disorder. Carlos Reynoso MD [facility] # [id number]
--- NOTE | 2018-06-01 17:01 | CP.PCM.PN ---
<Shanon Johnson - Last Filed: 06/01/18 17:08> Subjective - Date & Time of Evaluation Date of Evaluation: 06/01/18 Time of Evaluation: 14:00 - Subjective Subjective: Shanon Johnson, PGY2, Medicine Progress Note for Dr Diez: Patient seen and examined at bedside. No acute events overnight. Patient reports ongoing anxiety, unable to walk as patient feels very anxious and "gets winded." As per bedside nurse, patient tolerating off Oxygen well, satting 92% RA. Patient states however that he needs "oxygen as it helps him with his anxiety." Denies fevers, chest pain, abdominal pain, nausea, vomiting, constipation. Objective - Vital Signs/Intake and Output Vital Signs (last 24 hours): Temp Pulse Resp BP Pulse Ox 98.4 F 101 H 20 129/89 100 06/01/18 16:21 06/01/18 16:21 06/01/18 16:21 06/01/18 16:21 06/01/18 16:21 Intake and Output: 06/01/18 06/01/18 06:59 18:59 Intake Total 1200 Balance 1200 - Medications Medications: Current Medications Albuterol/Ipratropium (Duoneb 3 Mg/0.5 Mg (3 Ml) Ud) 3 ml IH [id number] PRN PRN Reason: Shortness of Breath Last Admin: 05/30/18 17:37 Dose: 3 ml Albuterol/Ipratropium (Duoneb 3 Mg/0.5 Mg (3 Ml) Ud) 3 ml IH [id number] [facility] Last Admin: 06/01/18 11:01 Dose: 3 ml Amlodipine Besylate (Norvasc) 10 mg PO 1130 [facility] Last Admin: 06/01/18 11:59 Dose: 10 mg Arformoterol Tartrate (Brovana) 15 mcg IH [id number] [facility] Last Admin: 06/01/18 07:50 Dose: 15 mcg Aspirin (Ecotrin) 81 mg PO DAILY [facility] Last Admin: 06/01/18 10:13 Dose: 81 mg Budesonide (Pulmicort Respules) 0.5 mg IH [id number] [facility] Last Admin: 06/01/18 07:50 Dose: 0.5 mg Clonazepam (Klonopin) 1 mg PO Q6 PRN; Protocol PRN Reason: Anxiety Last Admin: 06/01/18 14:43 Dose: 1 mg Clonidine HCl (Catapres) 0.3 mg PO BID [facility] Last Admin: 06/01/18 10:11 Dose: 0.3 mg Famotidine (Pepcid) 40 mg PO HS [facility] Last Admin: 05/31/18 21:13 Dose: 40 mg Ibuprofen (Motrin Tab) 200 mg PO Q6H PRN PRN Reason: Pain, moderate (4-7) Last Admin: 05/31/18 17:12 Dose: 200 mg Lisinopril (Zestril) 50 mg PO DAILY [facility] Last Admin: 06/01/18 10:10 Dose: 50 mg Lorazepam (Ativan) 0.5 mg IVP Q6H PRN; Protocol PRN Reason: Anxiety Last Admin: 06/01/18 10:46 Dose: 0.5 mg Methylprednisolone (Solu-Medrol) 30 mg IVP Q12 [facility] Last Admin: 06/01/18 10:14 Dose: 30 mg Multivitamins (Thera Tab) 1 tab PO 0800 [facility] Last Admin: 06/01/18 10:13 Dose: 1 tab Nicotine (Nicoderm Cq) 1 patch TD DAILY [facility] Last Admin: 06/01/18 10:13 Dose: 1 patch - Labs Labs: 06/01/18 06:00 06/01/18 06:00 PT 11.6 SECONDS (9.4-12.5) 05/29/18 05:50 INR 1.01 05/29/18 05:50 APTT 27.9 Seconds (25.1-36.5) 05/29/18 05:50 - Additional Findings Additional findings: - Constitutional Appears: Non-toxic, No Acute Distress - Head Exam Head Exam: ATRAUMATIC, NORMOCEPHALIC - Eye Exam Eye Exam: EOMI, PERRL. absent: Conjunctival injection, Nystagmus, Scleral icterus Pupil Exam: NORMAL ACCOMODATION, PERRL. absent: Miosis, Mydriatic, Unequal - ENT Exam ENT Exam: Mucous Membranes Moist - Neck Exam Neck Exam: Full ROM - Respiratory Exam Respiratory Exam: Wheezes (mild expiratory wheezes bilaterally) - Cardiovascular Exam Cardiovascular Exam: RRR, +S1, +S2. absent: Murmur - GI/Abdominal Exam GI & Abdominal Exam: Soft, Normal Bowel Sounds. absent: Firm, Guarding, Rigid, Tenderness, Mass - Extremities Exam Extremities Exam: absent: Calf Tenderness, Pedal Edema - Back Exam Back Exam: NORMAL INSPECTION. absent: CVA tenderness (L), CVA tenderness (R) - Neurological Exam Neurological Exam: Alert, Awake, Oriented x3 - Psychiatric Exam Psychiatric exam: Anxious - Skin Skin Exam: Dry, Normal Color, Warm Assessment and Plan - Assessment and Plan (Free Text) Assessment: 52 year old male with PMH COPD, HTN, anxiety, panic attacks, presents for chest pain, shortness of breath. COPD exacerbation treated with solumedrol, duonebs lucius and prn. Troponins have been negativex3, with no EKG changes, echo normal, ACS has been ruled out by Cardiology. Patient's UDS positive for cocaine, opiates and benzodiazepines. Patient underwent withdrawal from these agents, treated with ativan, supportive care. Patient however continues to complain of sustained anxiety, consulted psych: Anxiety: - Psych consulted. recommends klonopin 1 q6 hrs prn - PT eval: HR 120s while walking, reports increasing anxiety - monitor Chest pain: likely anxiety, pleurisy, ruled out ACS - Cardiology consult appreciated, signed off. - Echo normal EF. Grade 1 diastolic dysfunction. mild to moderate pulm HTN. - continue treatment of COPD, withdrawals COPD exacerbation: - decrease solumedrol 20 q 12, duonebs lucius and prn, pulmicort, brovana - PT eval: passed 6 minute walk test. Recommends no home oxygen. - monitor Polysubstance abuse: - recommended to stop usage, patient states that he will try to quit. - weaned down Ativan 0.5 mg q 6 IV prn - clonidine 0.3 mg bid - monitor Hx of HTN: - normotensive today - ASA 81 mg - clonidine 0.3 mg bid - lisinopril 50 mg daily - norvasc 10 mg daily - monitor PPX: Pepcid PT: outpatient PT Case seen and discussed with attending, Dr Diez. <Liset Diez - Last Filed: 06/01/18 17:26> Objective - Vital Signs/Intake and Output Vital Signs (last 24 hours): Temp Pulse Resp BP Pulse Ox 98.4 F 101 H 20 129/89 100 06/01/18 16:21 06/01/18 16:21 06/01/18 16:21 06/01/18 16:21 06/01/18 16:21 Intake and Output: 06/01/18 06/01/18 06:59 18:59 Intake Total 1200 Balance 1200 - Medications Medications: Current Medications Albuterol/Ipratropium (Duoneb 3 Mg/0.5 Mg (3 Ml) Ud) 3 ml IH [id number] PRN PRN Reason: Shortness of Breath Last Admin: 05/30/18 17:37 Dose: 3 ml Albuterol/Ipratropium (Duoneb 3 Mg/0.5 Mg (3 Ml) Ud) 3 ml IH [id number] [facility] Last Admin: 06/01/18 11:01 Dose: 3 ml Amlodipine Besylate (Norvasc) 10 mg PO 1130 [facility] Last Admin: 06/01/18 11:59 Dose: 10 mg Arformoterol Tartrate (Brovana) 15 mcg IH [id number] [facility] Last Admin: 06/01/18 07:50 Dose: 15 mcg Aspirin (Ecotrin) 81 mg PO DAILY [facility] Last Admin: 06/01/18 10:13 Dose: 81 mg Budesonide (Pulmicort Respules) 0.5 mg IH [id number] [facility] Last Admin: 06/01/18 07:50 Dose: 0.5 mg Clonazepam (Klonopin) 1 mg PO Q6 PRN; Protocol PRN Reason: Anxiety Last Admin: 06/01/18 14:43 Dose: 1 mg Clonidine HCl (Catapres) 0.3 mg PO BID [facility] Last Admin: 06/01/18 10:11 Dose: 0.3 mg Famotidine (Pepcid) 40 mg PO HS [facility] Last Admin: 05/31/18 21:13 Dose: 40 mg Ibuprofen (Motrin Tab) 200 mg PO Q6H PRN PRN Reason: Pain, moderate (4-7) Last Admin: 05/31/18 17:12 Dose: 200 mg Lisinopril (Zestril) 50 mg PO DAILY [facility] Last Admin: 06/01/18 10:10 Dose: 50 mg Lorazepam (Ativan) 0.5 mg IVP Q6H PRN; Protocol PRN Reason: Anxiety Last Admin: 06/01/18 10:46 Dose: 0.5 mg Methylprednisolone (Solu-Medrol) 20 mg IVP Q12 [facility] Multivitamins (Thera Tab) 1 tab PO 0800 [facility] Last Admin: 06/01/18 10:13 Dose: 1 tab Nicotine (Nicoderm Cq) 1 patch TD DAILY [facility] Last Admin: 06/01/18 10:13 Dose: 1 patch - Labs Labs: 06/01/18 06:00 06/01/18 06:00 PT 11.6 SECONDS (9.4-12.5) 05/29/18 05:50 INR 1.01 05/29/18 05:50 APTT 27.9 Seconds (25.1-36.5) 05/29/18 05:50 Attending/Attestation - Attestation I have personally seen and examined this patient.: Yes I have fully participated in the care of the patient.: Yes I have reviewed all pertinent clinical information, including history, physical exam and plan: Yes Notes (Text): 06/01/18 17:24 52 year old male with past medical history of COPD, hypertension, and anxiety who presented with complaint of chest pain and shortness of breath. Admitted for COPD exacerbation and started on duonebs with iv steroids. Serial cardiac enzymes were negative and ACS has been ruled out. Cardiology was following. Echocardiogram was reviewed. He was initially hypertensive and tachycardic, likely secondary to withdrawal. Urine drug screen was positive for cocaine, opiates and benzodiazepines. He is on ativan prn. He is also on norvasc, lisinopril and clonidine for hypertension. He was counselled on smoking and alcohol cessation. He was counselled on risks of continued substance abuse, although he denies use of. Patient still reports dyspnea with exertion. Likely anxiety component exacerbating his dyspnea. Psychiatry evaluation was appreciated and added klonopin prn. PT follow up appreciated. Liset Diez MD Hospitalist.
[2018-06-02] MEDS: Albuterol-Ipratrop 3 mg / 0.5 (3 ml) UD IH SCH ×5 (04:48→20:04)
[2018-06-02 08:37] LABS: BASO # 0.01 K/mm3 (0.0-2.0); BASO % 0.1 % (0.0-3.0); GRAN # 6.02 (1.4-6.5); GRAN % 76.3 % (50.0-68.0); HEMOGLOBIN 13.9 g/dL (14.0-18.0); LYMPH # 0.9 (1.2-3.4); LYMPH % 11.1 % (22.0-35.0); MEAN CELL VOLUME 83.5 fl (80.0-105.0); MEAN CORPUSCULAR HEMOGLOBIN 28.3 pg (25.0-35.0); MEAN CORPUSCULAR HGB CONC 33.8 g/dl (31.0-37.0); MONO % 12.5 % (1.0-6.0); RBC 4.92 10^6/uL (3.5-6.1); RED CELL DISTRIBUTION WIDTH 13.9 % (11.5-14.5); WHITE BLOOD COUNT 7.9 10^3/uL (4.5-11.0)
[2018-06-02] MEDS: Arformoterol 15 mcg/2 ml Inh Sol IH SCH ×2 (08:55→20:04)
[2018-06-02] MEDS: Budesonide 0.5 mg/2 ml Inhal Susp UD IH SCH ×2 (08:56→20:04)
[2018-06-02 09:19] LABS: ALB/GLOB RATIO 1.2 (1.1-1.8); ALBUMIN 3.9 g/dL (3.0-4.8); ALT/SGPT 45 U/L (7-56); AST/SGOT 24 U/L (17-59); BLOOD UREA NITROGEN 18 mg/dL (7-21); CALCIUM 9.3 mg/dL (8.4-10.5); GFR NON-AFRICAN AMERICAN > 60
[2018-06-02] MEDS: MethylPREDNISolone 40 mg Vial IVP SCH (09:27)
[2018-06-02] MEDS: Multivitamin Therapeutic Tab PO SCH (09:28)
--- NOTE | 2018-06-02 11:21 | CP.PCM.PN ---
<Shanon Johnson - Last Filed: 06/02/18 12:18> Subjective - Date & Time of Evaluation Date of Evaluation: 06/02/18 Time of Evaluation: 11:17 - Subjective Subjective: Shanon Johnson, PGY2, Medicine Progress Note for Dr Diez: Patient seen and examined at bedside. No acute events overnight. Patient ambulating well in the hallway, steady gait. Has a good appetite, tolerating PO diet well. No panic attacks overnight, as per nurses notes. This AM, patient however states that he feels anxious and feels that his "oxygen may be low at some periods when he gets anxious." Denies fevers, chest pain, abdominal pain, nausea, vomiting, constipation. Objective - Vital Signs/Intake and Output Vital Signs (last 24 hours): Temp Pulse Resp BP Pulse Ox 97.5 F L 91 H 20 131/87 96 06/02/18 06:00 06/02/18 06:00 06/02/18 06:00 06/02/18 10:41 06/02/18 06:00 Intake and Output: 06/02/18 06/02/18 06:59 18:59 Intake Total 1800 Balance 1800 - Medications Medications: Current Medications Albuterol/Ipratropium (Duoneb 3 Mg/0.5 Mg (3 Ml) Ud) 3 ml IH [id number] PRN PRN Reason: Shortness of Breath Last Admin: 05/30/18 17:37 Dose: 3 ml Albuterol/Ipratropium (Duoneb 3 Mg/0.5 Mg (3 Ml) Ud) 3 ml IH [id number] [facility] Last Admin: 06/02/18 08:56 Dose: 3 ml Amlodipine Besylate (Norvasc) 10 mg PO 1130 [facility] Last Admin: 06/02/18 10:41 Dose: 10 mg Arformoterol Tartrate (Brovana) 15 mcg IH [id number] [facility] Last Admin: 06/02/18 08:55 Dose: 15 mcg Aspirin (Ecotrin) 81 mg PO DAILY [facility] Last Admin: 06/02/18 09:25 Dose: 81 mg Budesonide (Pulmicort Respules) 0.5 mg IH [id number] [facility] Last Admin: 06/02/18 08:56 Dose: 0.5 mg Clonazepam (Klonopin) 1 mg PO Q6 PRN; Protocol PRN Reason: Anxiety Last Admin: 06/02/18 09:26 Dose: 1 mg Clonidine HCl (Catapres) 0.3 mg PO BID [facility] Last Admin: 06/02/18 09:24 Dose: 0.3 mg Famotidine (Pepcid) 40 mg PO HS [facility] Last Admin: 06/01/18 22:45 Dose: 40 mg Ibuprofen (Motrin Tab) 200 mg PO Q6H PRN PRN Reason: Pain, moderate (4-7) Last Admin: 05/31/18 17:12 Dose: 200 mg Lisinopril (Zestril) 50 mg PO DAILY [facility] Last Admin: 06/02/18 09:28 Dose: 50 mg Lorazepam (Ativan) 0.5 mg IVP Q6H PRN; Protocol PRN Reason: Anxiety Last Admin: 06/01/18 17:36 Dose: 0.5 mg Methylprednisolone (Solu-Medrol) 20 mg IVP Q12 [facility] Last Admin: 06/02/18 09:27 Dose: 20 mg Multivitamins (Thera Tab) 1 tab PO 0800 [facility] Last Admin: 06/02/18 09:28 Dose: 1 tab Nicotine (Nicoderm Cq) 1 patch TD DAILY [facility] Last Admin: 06/02/18 09:26 Dose: 1 patch - Labs Labs: 06/02/18 08:20 06/02/18 08:20 PT 11.6 SECONDS (9.4-12.5) 05/29/18 05:50 INR 1.01 05/29/18 05:50 APTT 27.9 Seconds (25.1-36.5) 05/29/18 05:50 - Additional Findings Additional findings: - Constitutional Appears: Non-toxic, No Acute Distress - Head Exam Head Exam: ATRAUMATIC, NORMOCEPHALIC - Eye Exam Eye Exam: EOMI, PERRL. absent: Conjunctival injection, Nystagmus, Scleral icterus Pupil Exam: NORMAL ACCOMODATION, PERRL. absent: Miosis, Mydriatic, Unequal - ENT Exam ENT Exam: Mucous Membranes Moist - Neck Exam Neck Exam: Full ROM - Respiratory Exam Respiratory Exam: Mild Wheezes, much improved since admission - Cardiovascular Exam Cardiovascular Exam: RRR, +S1, +S2. absent: Murmur - GI/Abdominal Exam GI & Abdominal Exam: Soft, Normal Bowel Sounds. absent: Firm, Guarding, Rigid, Tenderness, Mass - Extremities Exam Extremities Exam: absent: Calf Tenderness, Pedal Edema - Back Exam Back Exam: NORMAL INSPECTION. absent: CVA tenderness (L), CVA tenderness (R) - Neurological Exam Neurological Exam: Alert, Awake, Oriented x3 - Psychiatric Exam Psychiatric exam: Mildly Anxious - Skin Skin Exam: Dry, Normal Color, Warm Assessment and Plan - Assessment and Plan (Free Text) Assessment: 52 year old male with PMH COPD, HTN, anxiety, panic attacks, presents for chest pain, shortness of breath. COPD exacerbation treated with solumedrol, duonebs lucius and prn. Troponins have been negativex3, with no EKG changes, echo normal, ACS has been ruled out by Cardiology. Patient's UDS positive for cocaine, opiates and benzodiazepines. Patient underwent withdrawal from these agents, treated with ativan, supportive care. Patient however continues to complain of sustained anxiety, consulted psych, recommends inpatient admission. Patient on board, awaiting PT eval today: Anxiety: - Psych consulted. recommends klonopin 1 q6 hrs prn. Recommends inpatient admission, patient on board currently. - improved anxiety today - PT eval yesterday: HR 120s while walking, reports increasing anxiety. However, no drop in pulse ox. - monitor Chest pain: likely anxiety, pleurisy, ruled out ACS - Cardiology consult appreciated, signed off. - Echo normal EF. Grade 1 diastolic dysfunction. mild to moderate pulm HTN. - continue treatment of COPD, withdrawals COPD exacerbation: - solumedrol 20 q 12, duonebs lucius and prn, pulmicort, brovana - F/u PT eval today, communicated with PT to see patient. - monitor Polysubstance abuse: - recommended to stop usage, patient states that he will try to quit. - weaned down Ativan 0.5 mg q 8h IV prn - clonidine 0.3 mg bid - monitor Hx of HTN: - normotensive today - ASA 81 mg - clonidine 0.3 mg bid - lisinopril 50 mg daily - norvasc 10 mg daily - monitor PPX: Pepcid, ambulating in hallway Dispo: psych unit for admission, after cleared by PT Case seen and discussed with attending, Dr Diez. <Liset Diez - Last Filed: 06/02/18 16:54> Objective - Vital Signs/Intake and Output Vital Signs (last 24 hours): Temp Pulse Resp BP Pulse Ox 97.5 F L 100 H 18 133/88 96 06/02/18 06:00 06/02/18 11:32 06/02/18 11:32 06/02/18 11:32 06/02/18 06:00 Intake and Output: 06/02/18 06/02/18 06:59 18:59 Intake Total 1800 Balance 1800 - Medications Medications: Current Medications Albuterol/Ipratropium (Duoneb 3 Mg/0.5 Mg (3 Ml) Ud) 3 ml IH [id number] PRN PRN Reason: Shortness of Breath Last Admin: 05/30/18 17:37 Dose: 3 ml Albuterol/Ipratropium (Duoneb 3 Mg/0.5 Mg (3 Ml) Ud) 3 ml IH [id number] [facility] Last Admin: 06/02/18 15:46 Dose: 3 ml Amlodipine Besylate (Norvasc) 10 mg PO 1130 [facility] Last Admin: 06/02/18 10:41 Dose: 10 mg Arformoterol Tartrate (Brovana) 15 mcg IH [id number] [facility] Last Admin: 06/02/18 08:55 Dose: 15 mcg Aspirin (Ecotrin) 81 mg PO DAILY [facility] Last Admin: 06/02/18 09:25 Dose: 81 mg Budesonide (Pulmicort Respules) 0.5 mg IH [id number] [facility] Last Admin: 06/02/18 08:56 Dose: 0.5 mg Clonazepam (Klonopin) 1 mg PO Q6 PRN; Protocol PRN Reason: Anxiety Last Admin: 06/02/18 09:26 Dose: 1 mg Clonidine HCl (Catapres) 0.3 mg PO BID [facility] Last Admin: 06/02/18 09:24 Dose: 0.3 mg Famotidine (Pepcid) 40 mg PO HS [facility] Last Admin: 06/01/18 22:45 Dose: 40 mg Ibuprofen (Motrin Tab) 200 mg PO Q6H PRN PRN Reason: Pain, moderate (4-7) Last Admin: 05/31/18 17:12 Dose: 200 mg Lisinopril (Zestril) 50 mg PO DAILY [facility] Last Admin: 06/02/18 09:28 Dose: 50 mg Lorazepam (Ativan) 0.5 mg IVP Q8H PRN; Protocol PRN Reason: Symptoms of alcohol withdrawl Methylprednisolone (Solu-Medrol) 20 mg IVP Q12 [facility] Last Admin: 06/02/18 09:27 Dose: 20 mg Multivitamins (Thera Tab) 1 tab PO 0800 [facility] Last Admin: 06/02/18 09:28 Dose: 1 tab Nicotine (Nicoderm Cq) 1 patch TD DAILY [facility] Last Admin: 06/02/18 09:26 Dose: 1 patch - Labs Labs: 06/02/18 08:20 06/02/18 08:20 PT 11.6 SECONDS (9.4-12.5) 05/29/18 05:50 INR 1.01 05/29/18 05:50 APTT 27.9 Seconds (25.1-36.5) 05/29/18 05:50 Attending/Attestation - Attestation I have personally seen and examined this patient.: Yes I have fully participated in the care of the patient.: Yes I have reviewed all pertinent clinical information, including history, physical exam and plan: Yes Notes (Text): 06/02/18 16:52 52 year old male with past medical history of COPD, hypertension, and anxiety who presented with complaint of chest pain and shortness of breath secondary to COPD exacerbation. Symptoms improved with duonebs with iv steroids. Serial cardiac enzymes were negative and ACS has been ruled out. He was initially hypertensive and tachycardic, likely secondary to withdrawal. Urine drug screen was positive for cocaine, opiates and benzodiazepines. He is on ativan prn. He was also on norvasc, lisinopril and clonidine for hypertension. He was counselled on smoking and alcohol cessation. He was counselled on risks of continued substance abuse, although he denies use of. Likely anxiety component exacerbating his dyspnea. He was seen by psychiatry who added klonopin prn. D/c planning for inpatient psychiatric unit if patient is agreeable and bed available. Liset Diez MD Hospitalist.
--- NOTE | 2018-06-02 16:41 | CP.PCM.DIS ---
<Liset Diez A - Last Filed: 06/02/18 16:56> Provider - Provider Date of Admission: 05/30/18 12:48 Attending physician: Rosalba Ott DO Primary care physician: Adam Richard MD Consults: 05/29/18 09:22 Cardiology Consult Routine Comment: Consulting Provider: Aj Olsen Consulting Physician: Aj Olsen Reason for Consult: chest pain 05/29/18 20:37 Inpatient [facility]ACH [facility]NER Core Measures Referral Routine Comment: COPD Physician Instructions: Reason For Exam: EVALUATION Transition In Care/Readmission Reduction Routine Comment: Physician Instructions: Reason For Exam: EVALUATION 06/01/18 08:40 Psychiatry Consult Routine Comment: Consulting Provider: Meseret Murguia Consulting Physician: Meseret Murguia Reason for Consult: Anxiety, panic attacks Hospital Course - Lab Results Lab Results: Most Recent Lab Values WBC 7.9 10^3/uL (4.5-11.0) 06/02/18 08:20 RBC 4.92 10^6/uL (3.5-6.1) 06/02/18 08:20 Hgb 13.9 g/dL (14.0-18.0) L 06/02/18 08:20 Hct 41.1 % (42.0-52.0) L 06/02/18 08:20 MCV 83.5 fl (80.0-105.0) 06/02/18 08:20 MCH 28.3 pg (25.0-35.0) 06/02/18 08:20 MCHC 33.8 g/dl (31.0-37.0) 06/02/18 08:20 RDW 13.9 % (11.5-14.5) 06/02/18 08:20 Plt Count 287 10^3/uL (120.0-450.0) 06/02/18 08:20 MPV 10.0 fl (7.0-11.0) 06/02/18 08:20 Gran % 76.3 % (50.0-68.0) H 06/02/18 08:20 Lymph % (Auto) 11.1 % (22.0-35.0) L 06/02/18 08:20 Pender % (Auto) 12.5 % (1.0-6.0) H 06/02/18 08:20 Eos % (Auto) 0.0 % (1.5-5.0) L 06/02/18 08:20 Baso % (Auto) 0.1 % (0.0-3.0) 06/02/18 08:20 Gran # 6.02 (1.4-6.5) 06/02/18 08:20 Lymph # (Auto) 0.9 (1.2-3.4) L 06/02/18 08:20 Pender # (Auto) 1.0 (0.1-0.6) H 06/02/18 08:20 Eos # (Auto) 0.0 (0.0-0.7) 06/02/18 08:20 Baso # (Auto) 0.01 K/mm3 (0.0-2.0) 06/02/18 08:20 PT 11.6 SECONDS (9.4-12.5) 05/29/18 05:50 INR 1.01 05/29/18 05:50 APTT 27.9 Seconds (25.1-36.5) 05/29/18 05:50 D-Dimer, Quantitative < 200 ng/mlDDU (0-243) 05/29/18 05:50 pCO2 55 mm/Hg (35-45) H 05/29/18 09:23 pO2 81.0 mm/Hg (80-100) 05/29/18 09:23 HCO3 29.7 mmol/L (21-28) H 05/29/18 09:23 ABG pH 7.34 (7.35-7.45) L 05/29/18 09:23 ABG Total CO2 31.4 mmol.L (22-28) H 05/29/18 09:23 ABG O2 Saturation 98.8 % (95-98) H 05/29/18 09:23 ABG O2 Content 17.7 ML/dl (15-23) 05/29/18 09:23 ABG Base Excess 2.6 mmol/L (-2.0-3.0) 05/29/18 09:23 ABG Hemoglobin 13.6 g/dL (11.7-17.4) 05/29/18 09:23 ABG Carboxyhemoglobin 5.9 % (0.5-1.5) H 05/29/18 09:23 POC ABG HHb (Measured) 1.1 % (0-5) 05/29/18 09:23 ABG Methemoglobin 0.8 % (0.0-3.0) 05/29/18 09:23 ABG O2 Capacity 17.9 mL/dl (16-24) 05/29/18 09:23 Hgb O2 Saturation 92.3 % (95.0-98.0) L 05/29/18 09:23 FiO2 32.0 % 05/29/18 09:23 Sodium 138 mmol/L (132-148) 06/02/18 08:20 Potassium 4.3 mmol/L (3.6-5.0) 06/02/18 08:20 Chloride 100 mmol/L (98-107) 06/02/18 08:20 Carbon Dioxide 31 mmol/L (21-33) 06/02/18 08:20 Anion Gap 12 (10-20) 06/02/18 08:20 BUN 18 mg/dL (7-21) 06/02/18 08:20 Creatinine 0.7 mg/dl (0.8-1.5) L 06/02/18 08:20 Est GFR ( Amer) > 60 06/02/18 08:20 Est GFR (Non-Af Amer) > 60 06/02/18 08:20 POC Glucose (mg/dL) 191 mg/dL (65-110) H 06/02/18 11:18 Random Glucose 127 mg/dL (70-110) H 06/02/18 08:20 Hemoglobin A1c 6.1 % (4.2-6.5) 05/29/18 08:10 Calcium 9.3 mg/dL (8.4-10.5) 06/02/18 08:20 Phosphorus 4.3 mg/dL (2.5-4.5) 06/02/18 08:20 Magnesium 2.2 mg/dL (1.7-2.2) 06/02/18 08:20 Total Bilirubin 0.4 mg/dL (0.2-1.3) 06/02/18 08:20 AST 24 U/L (17-59) 06/02/18 08:20 ALT 45 U/L (7-56) 06/02/18 08:20 Alkaline Phosphatase 84 U/L (38-126) 06/02/18 08:20 Lactate Dehydrogenase 719 U/L (333-699) H 05/29/18 05:50 Total Creatine Kinase 412 U/L (35-230) H 05/29/18 05:50 CK-MB (CK-2) 10.0 ng/mL (0.0-3.6) H 05/29/18 05:50 CK-MB (CK-2) % 2.4 % (2.5-3.0) L 05/29/18 05:50 Troponin I < 0.01 ng/mL 05/29/18 20:00 NT-Pro-B Natriuret Pep 88.4 pg/mL (0-450) 05/29/18 05:50 Total Protein 7.2 g/dL (5.8-8.3) 06/02/18 08:20 Albumin 3.9 g/dL (3.0-4.8) 06/02/18 08:20 Globulin 3.3 gm/dL 06/02/18 08:20 Albumin/Globulin Ratio 1.2 (1.1-1.8) 06/02/18 08:20 Triglycerides 83 mg/dL (35-160) 05/29/18 08:10 Cholesterol 184 mg/dL (130-200) 05/29/18 08:10 LDL Cholesterol Direct 95 mg/dL (0-129) 05/29/18 08:10 HDL Cholesterol 62 mg/dL (29-60) H 05/29/18 08:10 TSH 3rd Generation 0.84 mIU/mL (0.46-4.68) 05/29/18 13:00 Urine Color Yellow (YELLOW) 05/31/18 02:10 Urine Appearance Clear (CLEAR) 05/31/18 02:10 Urine pH 6.0 (4.7-8.0) 05/31/18 02:10 Ur Specific [place] 1.025 (1.005-1.035) 05/31/18 02:10 Urine Protein Negative mg/dL (<30 mg/dL) 05/31/18 02:10 Urine Glucose (UA) Negative mg/dL (NEGATIVE) 05/31/18 02:10 Urine Ketones Negative mg/dL (NEGATIVE) 05/31/18 02:10 Urine Blood Trace-intact (NEGATIVE) H 05/31/18 02:10 Urine Nitrate Negative (NEGATIVE) 05/31/18 02:10 Urine Bilirubin Negative (NEGATIVE) 05/31/18 02:10 Urine Urobilinogen 0.2 E.U./dL (<1 E.U./dL) 05/31/18 02:10 Ur Leukocyte Esterase Negative Randy/uL (NEGATIVE) 05/31/18 02:10 Urine RBC 0 - 2 /hpf (0-2) 05/31/18 02:10 Urine WBC 0 - 2 /hpf (0-6) 05/31/18 02:10 Ur Epithelial Cells 0 - 2 /hpf (0-5) 05/31/18 02:10 Urine Bacteria None /hpf (NONE) 05/31/18 02:10 Urine Opiates Screen Positive (NEGATIVE) H 05/29/18 20:30 Urine Methadone Screen Negative (NEGATIVE) 05/29/18 20:30 Ur Barbiturates Screen Negative (NEGATIVE) 05/29/18 20:30 Ur Phencyclidine Scrn Negative (NEGATIVE) 05/29/18 20:30 Ur Amphetamines Screen Negative (NEGATIVE) 05/29/18 20:30 U Benzodiazepines Scrn Positive (NEGATIVE) H 05/29/18 20:30 U Oth Cocaine Metabols Positive (NEGATIVE) H 05/29/18 20:30 U Cannabinoids Screen Negative (NEGATIVE) 05/29/18 20:30 Alcohol, Quantitative < 10 mg/dL (0-10) 05/29/18 08:10 Discharge Plan - Discharge Medications Prescriptions: Arformoterol [Brovana] 15 mcg IH [id number] #1 neb Aspirin [Adult Aspirin] 1 tab PO DAILY #30 tablet Budesonide [Pulmicort Respules] 0.5 mg IH [id number] #1 neb cloNIDine [Catapres] 0.3 mg PO BID #60 tab Famotidine [Pepcid] 40 mg PO HS #30 tab Lisinopril [Zestril] 50 mg PO DAILY #30 tab Methylprednisolone [Medrol Dose Pack (21 tabs)] 4 mg PO DAILY #21 mg Nicotine 14 mg/24 hr [Nicoderm CQ] 1 patch TD DAILY #30 patch - Follow Up Plan Condition: STABLE Disposition: DISCHARGE TO [facility] Instructions: Shortness of Breath (Dyspnea) (DC), Chest Pain (DC), Drug Withdrawal (DC), Quitting Smoking, Polysubstance Abuse (DC) Additional Instructions: Follow up with PMD Dr Richard in 1 week upon discharge from psychiatric unit. Take medications as prescribed, including medrol dose pack, ventolin inhaler, pulmicort, brovana. norvasc 10 mg daily, ASA 81 mg, clonidine 0.3 mg two times a day, lisinopril 50 mg daily, nicotine patch. Go for outpatient Physical therapy for your strength training. Return to ED for any worsening of symptoms. Referrals: Adam Richard MD [Primary Care Provider] - Attending/Attestation - Attestation I have personally seen and examined this patient.: Yes I have fully participated in the care of the patient.: Yes I have reviewed all pertinent clinical information, including history, physical exam and plan: Yes Notes (Text): 06/02/18 16:56 52 year old male with past medical history of COPD, hypertension, and anxiety who presented with complaint of chest pain and shortness of breath secondary to COPD exacerbation. Symptoms improved with duonebs with iv steroids. Serial cardiac enzymes were negative and ACS has been ruled out. He was initially hypertensive and tachycardic, likely secondary to withdrawal. Urine drug screen was positive for cocaine, opiates and benzodiazepines. He is on ativan prn. He was also on norvasc, lisinopril and clonidine for hypertension. He was counselled on smoking and alcohol cessation. He was counselled on risks of continued substance abuse, although he denies use of. Likely anxiety component exacerbating his dyspnea. He was seen by psychiatry who added klonopin prn. Patient is agreeble and will be transferred to inpatient psychiatric unit. Liset Deiz MD Hospitalist. <Shanon Johnson - Last Filed: 06/02/18 17:14> Provider - Provider Date of Admission: 05/30/18 12:48 Attending physician: Rosalba Ott DO Primary care physician: Adam Richard MD Consults: 05/29/18 09:22 Cardiology Consult Routine Comment: Consulting Provider: Aj Olsen Consulting Physician: Aj Olsen Reason for Consult: chest pain 05/29/18 20:37 Inpatient [facility]ACH [employer] Core Measures Referral Routine Comment: COPD Physician Instructions: Reason For Exam: EVALUATION Transition In Care/Readmission Reduction Routine Comment: Physician Instructions: Reason For Exam: EVALUATION 06/01/18 08:40 Psychiatry Consult Routine Comment: Consulting Provider: Meseret Murguia Consulting Physician: Meseret Murguia Reason for Consult: Anxiety, panic attacks Time Spent in preparation of Discharge (in minutes): 60 Diagnosis - Discharge Diagnosis (1) Anxiety Status: Acute (2) Polysubstance abuse Status: Acute (3) COPD (chronic obstructive pulmonary disease) Status: Acute (4) Chest pain Status: Acute Hospital Course - Lab Results Lab Results: Most Recent Lab Values WBC 7.9 10^3/uL (4.5-11.0) 06/02/18 08:20 RBC 4.92 10^6/uL (3.5-6.1) 06/02/18 08:20 Hgb 13.9 g/dL (14.0-18.0) L 06/02/18 08:20 Hct 41.1 % (42.0-52.0) L 06/02/18 08:20 MCV 83.5 fl (80.0-105.0) 06/02/18 08:20 MCH 28.3 pg (25.0-35.0) 06/02/18 08:20 MCHC 33.8 g/dl (31.0-37.0) 06/02/18 08:20 RDW 13.9 % (11.5-14.5) 06/02/18 08:20 Plt Count 287 10^3/uL (120.0-450.0) 06/02/18 08:20 MPV 10.0 fl (7.0-11.0) 06/02/18 08:20 Gran % 76.3 % (50.0-68.0) H 06/02/18 08:20 Lymph % (Auto) 11.1 % (22.0-35.0) L 06/02/18 08:20 Pender % (Auto) 12.5 % (1.0-6.0) H 06/02/18 08:20 Eos % (Auto) 0.0 % (1.5-5.0) L 06/02/18 08:20 Baso % (Auto) 0.1 % (0.0-3.0) 06/02/18 08:20 Gran # 6.02 (1.4-6.5) 06/02/18 08:20 Lymph # (Auto) 0.9 (1.2-3.4) L 06/02/18 08:20 Pender # (Auto) 1.0 (0.1-0.6) H 06/02/18 08:20 Eos # (Auto) 0.0 (0.0-0.7) 06/02/18 08:20 Baso # (Auto) 0.01 K/mm3 (0.0-2.0) 06/02/18 08:20 PT 11.6 SECONDS (9.4-12.5) 05/29/18 05:50 INR 1.01 05/29/18 05:50 APTT 27.9 Seconds (25.1-36.5) 05/29/18 05:50 D-Dimer, Quantitative < 200 ng/mlDDU (0-243) 05/29/18 05:50 pCO2 55 mm/Hg (35-45) H 05/29/18 09:23 pO2 81.0 mm/Hg (80-100) 05/29/18 09:23 HCO3 29.7 mmol/L (21-28) H 05/29/18 09:23 ABG pH 7.34 (7.35-7.45) L 05/29/18 09:23 ABG Total CO2 31.4 mmol.L (22-28) H 05/29/18 09:23 ABG O2 Saturation 98.8 % (95-98) H 05/29/18 09:23 ABG O2 Content 17.7 ML/dl (15-23) 05/29/18 09:23 ABG Base Excess 2.6 mmol/L (-2.0-3.0) 05/29/18 09:23 ABG Hemoglobin 13.6 g/dL (11.7-17.4) 05/29/18 09:23 ABG Carboxyhemoglobin 5.9 % (0.5-1.5) H 05/29/18 09:23 POC ABG HHb (Measured) 1.1 % (0-5) 05/29/18 09:23 ABG Methemoglobin 0.8 % (0.0-3.0) 05/29/18 09:23 ABG O2 Capacity 17.9 mL/dl (16-24) 05/29/18 09:23 Hgb O2 Saturation 92.3 % (95.0-98.0) L 05/29/18 09:23 FiO2 32.0 % 05/29/18 09:23 Sodium 138 mmol/L (132-148) 06/02/18 08:20 Potassium 4.3 mmol/L (3.6-5.0) 06/02/18 08:20 Chloride 100 mmol/L (98-107) 06/02/18 08:20 Carbon Dioxide 31 mmol/L (21-33) 06/02/18 08:20 Anion Gap 12 (10-20) 06/02/18 08:20 BUN 18 mg/dL (7-21) 06/02/18 08:20 Creatinine 0.7 mg/dl (0.8-1.5) L 06/02/18 08:20 Est GFR ( Amer) > 60 06/02/18 08:20 Est GFR (Non-Af Amer) > 60 06/02/18 08:20 POC Glucose (mg/dL) 191 mg/dL (65-110) H 06/02/18 11:18 Random Glucose 127 mg/dL (70-110) H 06/02/18 08:20 Hemoglobin A1c 6.1 % (4.2-6.5) 05/29/18 08:10 Calcium 9.3 mg/dL (8.4-10.5) 06/02/18 08:20 Phosphorus 4.3 mg/dL (2.5-4.5) 06/02/18 08:20 Magnesium 2.2 mg/dL (1.7-2.2) 06/02/18 08:20 Total Bilirubin 0.4 mg/dL (0.2-1.3) 06/02/18 08:20 AST 24 U/L (17-59) 06/02/18 08:20 ALT 45 U/L (7-56) 06/02/18 08:20 Alkaline Phosphatase 84 U/L (38-126) 06/02/18 08:20 Lactate Dehydrogenase 719 U/L (333-699) H 05/29/18 05:50 Total Creatine Kinase 412 U/L (35-230) H 05/29/18 05:50 CK-MB (CK-2) 10.0 ng/mL (0.0-3.6) H 05/29/18 05:50 CK-MB (CK-2) % 2.4 % (2.5-3.0) L 05/29/18 05:50 Troponin I < 0.01 ng/mL 05/29/18 20:00 NT-Pro-B Natriuret Pep 88.4 pg/mL (0-450) 05/29/18 05:50 Total Protein 7.2 g/dL (5.8-8.3) 06/02/18 08:20 Albumin 3.9 g/dL (3.0-4.8) 06/02/18 08:20 Globulin 3.3 gm/dL 06/02/18 08:20 Albumin/Globulin Ratio 1.2 (1.1-1.8) 06/02/18 08:20 Triglycerides 83 mg/dL (35-160) 05/29/18 08:10 Cholesterol 184 mg/dL (130-200) 05/29/18 08:10 LDL Cholesterol Direct 95 mg/dL (0-129) 05/29/18 08:10 HDL Cholesterol 62 mg/dL (29-60) H 05/29/18 08:10 TSH 3rd Generation 0.84 mIU/mL (0.46-4.68) 05/29/18 13:00 Urine Color Yellow (YELLOW) 05/31/18 02:10 Urine Appearance Clear (CLEAR) 05/31/18 02:10 Urine pH 6.0 (4.7-8.0) 05/31/18 02:10 Ur Specific [place] 1.025 (1.005-1.035) 05/31/18 02:10 Urine Protein Negative mg/dL (<30 mg/dL) 05/31/18 02:10 Urine Glucose (UA) Negative mg/dL (NEGATIVE) 05/31/18 02:10 Urine Ketones Negative mg/dL (NEGATIVE) 05/31/18 02:10 Urine Blood Trace-intact (NEGATIVE) H 05/31/18 02:10 Urine Nitrate Negative (NEGATIVE) 05/31/18 02:10 Urine Bilirubin Negative (NEGATIVE) 05/31/18 02:10 Urine Urobilinogen 0.2 E.U./dL (<1 E.U./dL) 05/31/18 02:10 Ur Leukocyte Esterase Negative Randy/uL (NEGATIVE) 05/31/18 02:10 Urine RBC 0 - 2 /hpf (0-2) 05/31/18 02:10 Urine WBC 0 - 2 /hpf (0-6) 05/31/18 02:10 Ur Epithelial Cells 0 - 2 /hpf (0-5) 05/31/18 02:10 Urine Bacteria None /hpf (NONE) 05/31/18 02:10 Urine Opiates Screen Positive (NEGATIVE) H 05/29/18 20:30 Urine Methadone Screen Negative (NEGATIVE) 05/29/18 20:30 Ur Barbiturates Screen Negative (NEGATIVE) 05/29/18 20:30 Ur Phencyclidine Scrn Negative (NEGATIVE) 05/29/18 20:30 Ur Amphetamines Screen Negative (NEGATIVE) 05/29/18 20:30 U Benzodiazepines Scrn Positive (NEGATIVE) H 05/29/18 20:30 U Oth Cocaine Metabols Positive (NEGATIVE) H 05/29/18 20:30 U Cannabinoids Screen Negative (NEGATIVE) 05/29/18 20:30 Alcohol, Quantitative < 10 mg/dL (0-10) 05/29/18 08:10 - Hospital Course Hospital Course: This is a 52 year old male with PMH COPD, HTN, anxiety, panic attacks, presents for chest pain, shortness of breath. Patient was admitted for COPD exacerbation. COPD exacerbation was treated with solumedrol, duonebs lucius and prn. Troponins were negativex3, with no EKG changes, echo normal, ACS has been ruled out by Cardiology. Patient's UDS positive for cocaine, opiates and benzodiazepines. Patient underwent withdrawal from these agents, treated with ativan, supportive care. Patient however continues to complain of sustained anxiety, consulted psych, recommends inpatient admission. Patient agrees to admission. Patient discharged to psych unit voluntarily with continuation of his norvasc 10 mg daily, ASA 81 mg, clonidine 0.3 mg two times a day, lisinopril 50 mg daily, nicotine patch, pulmicort, brovana. Patient will be started on tapering dose of steroids, starting from 20 mg daily prednisone tomorrow on psych unit. Patient will also be given a ventolin inhaler. Case seen and discussed with attending, Dr Diez. Discharge Exam - Head Exam Head Exam: ATRAUMATIC, NORMOCEPHALIC - Eye Exam Eye Exam: EOMI, PERRL. absent: Conjunctival injection, Nystagmus, Scleral icterus Pupil Exam: NORMAL ACCOMODATION, PERRL. absent: Irregular, Miosis, Mydriatic, Unequal - ENT Exam ENT Exam: Mucous Membranes Moist - Neck Exam Neck exam: Full Rom - Respiratory Exam Respiratory Exam: Clear to PA & Lateral, NORMAL BREATHING PATTERN. absent: Chest Wall Tenderness, Rales, Rhonchi, Wheezes - Cardiovascular Exam Cardiovascular Exam: RRR, +S1, +S2. absent: Systolic Murmur - GI/Abdominal Exam GI & Abdominal Exam: Normal Bowel Sounds, Unremarkable. absent: Distended, Firm, Guarding, Organomegaly, Rebound - Extremities Exam Extremities exam: normal inspection - Back Exam Back exam: NORMAL INSPECTION - Neurological Exam Neurological exam: Alert, Oriented x3 - Psychiatric Exam Psychiatric exam: Normal Mood - Skin Skin Exam: Dry, Normal Color, Warm
[2018-06-02 17:54] VITALS: BP 136/92; PULSE 97; RESP 20; TEMP 98; O2SAT 95
--- NOTE | 2018-06-02 23:41 | CON ---
DATE: 06/02/2018 HISTORY OF PRESENT ILLNESS: The patient is a 52-year-old male with a history of depression and anxiety, opiate abuse possible, prior psychiatric admission at [facility], who the psychiatrist has been following with him on the medical floor for symptoms of acute anxiety and depression. Provider started Klonopin for the patient yesterday and the patient has received 1 dose; however, he is unsure if it has been very effective yet. He still reports anxiety symptoms are stressful. Thus far, he denies any side effects from the Klonopin and there have been no major behavioral issues. He denies any suicidal thoughts or perceptual disturbance. He has been calm and cooperative with my visits and is coherent. The patient is currently agreeable to transfer to psychiatric inpatient unit once he is medically cleared. RELEVANT PSYCHIATRIC MEDICATIONS: Klonopin 1 mg every 6 hours p.r.n., the patient received one dose yesterday and one dose today. IMPRESSION: Anxiety disorder, not otherwise specified, rule out substance-induced anxiety disorder; history of cocaine and opiate use, likely opiate withdrawal as a contributing factor, rule out depression. RECOMMENDATIONS: Continue Klonopin 1 mg every 6 hours p.r.n. Psychiatry will continue to follow up with the patient. He is agreeable to transfer to inpatient psychiatric unit once he is medically cleared. Carlos Reynoso MD
--- NOTE | 2018-06-04 19:18 | PQF ---
PROVIDER RESPONSE TEXT: Moderate persistent REVIEWER QUERY TEXT: Asthma Specificity and Type Asthma is documented in the Medical Record. Please specify the type and severity of asthma and indic ate if this is associated with exacerbation or status asthmaticus. Such as: -- Mild intermittent -- Mild persistent -- Moderate persistent -- Severe persistent -- Exercise induced bronchospasm -- Cough variant asthma -- Other, please specify The patient's Clinical Indicators include: Please see query. Thank you. Query created by: Zaida Landers on 06/04/2018 2:51 PM Electronically signed by: Liset Diez MD 06/04/2018 7:14 PM
== END 2018-06-02 22:03 | DRG 88 ==
LOC: ED 05:27 → ERH 06:54 → 3RNO 05-30 00:19 → ERH 05-30 00:20 → 3RNO 05-30 02:35 → OBSVTOIN 05-30 12:48
PROVIDERS: ADMIT Hospitalist; ATTEND Hospitalist
DX: J44.1 Chronic obstructive pulmonary disease with (acute) exacerbation (principal); F11.90 Opioid use, unspecified, uncomplicated; F14.90 Cocaine use, unspecified, uncomplicated; F17.200 Nicotine dependence, unspecified, uncomplicated; F10.10 Alcohol abuse, uncomplicated; F41.0 Panic disorder [episodic paroxysmal anxiety]; I10 Essential (primary) hypertension; I27.20 Pulmonary hypertension, unspecified; J45.40 Moderate persistent asthma, uncomplicated; Z79.82 Long term (current) use of aspirin; Z79.899 Other long term (current) drug therapy; Z82.49 Family history of ischemic heart disease and other diseases of the circulatory system; R40.2412 Glasgow coma scale score 13-15, at arrival to emergency department; R07.89 Other chest pain

== ENCOUNTER 2018-06-02 22:08 | Inpatient (IN) | payer MEDICAID ==
[2018-06-03] MEDS ORDERED: Albuterol-Ipratrop 3 mg / 0.5 (3 ml) UD IH STA (00:13)
[2018-06-03] MEDS ORDERED: Albuterol-Ipratrop 3 mg / 0.5 (3 ml) UD IH PRN (00:13)
--- NOTE | 2018-06-03 00:18 | PCM.BM ---
<Michelet Arroyo - Last Filed: 06/03/18 00:14> Treatment Plan Problems - Problems identified on initial assessmt Anxiety Date Initiated: 06/03/18 Time Initiated: 00:15 Assessment reference: NA Status: Active Panick attacks Date Initiated: 06/03/18 Time Initiated: 00:15 Assessment reference: NA Status: Active Ineffective breathing pattern Date Initiated: 06/03/18 Time Initiated: 00:16 Assessment reference: NA Status: Active Altered sleep pattern Date Initiated: 06/03/18 Time Initiated: 00:16 Assessment reference: NA Status: Active Treatment assets and liabiliti Patient Assests: cooperative, educated, motivated, self-reliant, cognitively intact, good interpersonal skills Patient Liabilities: physical pain, financial problems, dietary restrictions, substance abuse, medical problems, legal issue - Milieu Protocol Maintain good personal hygiene: daily Encourage regular showers, daily Remind patient to perform daily oral care, daily Assist patient to perform ADL's Conduct patient checks and document Observation sheet: Q15 minutes Maintain personal safety: daily Educate patient to report safety concerns to staff, daily Monitor environment for contraband/sharps Medication safety: Monitor for expected outcome, potential side effects: daily, Assess barriers to learning: daily, Assess readiness for medication education: daily Family Contact Family involvement: Family/SO is involved Discharge/Continuing Care - Education Needs Education Needs: Patient Medication, Patient Diagnosis/Disease Process, Patient Coping Skills, Patient Anger Management skills, Patient Activities of Daily Living, Patient Pain, Patient Nutrition, Patient Uses of Medical Equipment, Patient Health Practices/Safety, Patient Personal Hygiene/Grooming, Patient Aftercare Safety Plan - Discharge Discharge Criteria: Tolerates medication w/o severe side effects, Free of agitation, Normal sleep pattern, Ability to care for self Discharge to:: Home <Carlos Reynoso - Last Filed: 06/03/18 12:33> - Diagnosis (1) Anxiety Status: Acute Interventions: 06/03/18 12:33 group, milieu and supportive tx * Appreciate f/u by Dr. Diez and Dr. Castillo on 06/03/18~signed off. * klonopin 1.25 mg po q6 for anxiety * pamelor 25 mg po TID, increase to 50 mg po AM, 25 mg PM and 25 mg HS as tolerated for anxiety. * Consider naltrexone for opiate/alcohol use however patient denies that he is dependent. Feels his main problem is anxiety. (2) Polysubstance abuse Status: Acute Interventions: 06/03/18 12:33 group, milieu and supportive tx * Appreciate f/u by Dr. Diez and Dr. Castillo on 06/03/18~signed off. * klonopin 1.25 mg po q6 for anxiety * pamelor 25 mg po TID, increase to 50 mg po AM, 25 mg PM and 25 mg HS as tolerated for anxiety. * Consider naltrexone for opiate/alcohol use however patient denies that he is dependent. Feels his main problem is anxiety. <Omaira Méndez - Last Filed: 06/04/18 11:48> Family Contact Family involvement: Famliy/SO not involved <Anne Allen - Last Filed: 06/05/18 11:58>
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
[2018-06-03] MEDS ORDERED: Arformoterol 15 mcg/2 ml Inh Sol IH SCH (08:00)
[2018-06-03] MEDS: Arformoterol 15 mcg/2 ml Inh Sol IH SCH (08:16)
[2018-06-03] MEDS: Budesonide 0.5 mg/2 ml Inhal Susp UD IH SCH (08:17)
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
[2018-06-04] MEDS: Budesonide 0.5 mg/2 ml Inhal Susp UD IH SCH ×2 (09:58→20:48)
[2018-06-04] MEDS: Arformoterol 15 mcg/2 ml Inh Sol IH SCH ×2 (09:59→20:50)
--- NOTE | 2018-06-04 15:33 | PCM.PYCHPN ---
Psychiatric Progress Note - Psychiatric Progress Note Patient seen today, length of contact: 30 minutes Patient Chief Complaint: "I was very depressed, hopeless" Problems Identified/Issues Discussed: Suicide/ homicide prevention, past psychiatric h/o, current psychiatric s ymptoms, medical problems, risk/benefits and alternatives of medications, medications compliance, coping strategies, substance abuse h/o, relapse prevention, importance of follow up with psychiatrist and therapist, discharge plan. Medical Problems: COPD, asthma, hypertension, chronic back pain, please see medical team notes for more detailed information Diagnostic Results: Vital Signs Temp Pulse Pulse Pulse Resp BP 06/04/18 09:40 98 H 154/97 H 06/04/18 09:29 154/97 H 06/04/18 09:25 98 H 154/97 H 06/03/18 16:06 88 122/75 06/03/18 16:00 88 122/75 06/03/18 10:00 85 17 106/62 06/03/18 08:29 100 H 145/101 H 06/03/18 07:54 148/108 H 06/03/18 07:52 93 H 148/108 H 06/03/18 07:00 98.7 F 93 H 16 145/108 H 06/03/18 03:25 91 H 91 H 20 DSM 5 Symptoms Update: As per Dr. Reynoso's assessment: patient is a single 52-year-old -[place] male with a history of depression and anxiety, opiate, cocaine and alcohol abuse, one prior admission at [facility] [place] 2012 as well as consultation by Dr. Melton on the medical floor prior to this admission, who was transferred from the medical floor on 06/02/18 for treatment of anxiety. Patient presented to the ER on 05/30/18 with complaints of chest pain. He was medically stabilized from 05/30/18-06/02/18 for COPD exacerbation and ACS was ruled out. 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 Patient was seen and examined today at the treatment team meeting, discussed with staff, 's assessment reviewed. Patient presented to be flat and disengaged, pt reported to be depressed and hopeless. Patient was minimizing his addiction to opioids, cocaine "I took cocaine only once, that day", patient reported no correlation with his substance abuse and chest pain. Denies that he is addicted to these substances. Patient reported that his outpatient psychiatrist is prescribing him Xanax, at the same time patient reported that he did not see his psychiatrist for past year, most likely patient was by his medications off streets. Patient has been coherent without any evidence of perceptual disturbance on the unit. Patient reported that Pamelor was helpful in the past, willing to continue that medication. Patient complaining of insomnia, was asking at least to give him Xanax at the nighttime for sleep, patient reported that he feels medications at [facility] pharmacy, pharmacy was contacted but there is no record [phone] As per staff patient is self isolating, not participating in unit activities, in the same time no aggression, no agitation. So far patient tolerates medications well, no side effects observed or reported, aims 0, no EPS. 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 Medication Change: Yes (klonopin d/c, xanax 0.5po tid scheduled) Medical Record Reviewed: Yes Consults ordered or reviewed: medical consult appreciated Please see notes for more detailed information Mental Status Examination - Cognitive Function Orientation: Person, Place, Situation Memory: Intact Attention: Poor Concentration: Poor Association: WNL Fund of Knowledge: WNL - Mood Mood: Depressed, Anxious - Affect Affect: Other (anxious) - Formal Thought Process Formal Thought Process: No Impairment - Suicidal Ideation Suicidal Ideation: No - Homicidal Ideation Homicidal Ideation: No Goal/Treatment Plan - Goal/Treatment Plan Need for Continued Stay: Remain at risks for inpatient hospitalization, Severe depression anxiety, Discharge may exacerbated symptoms, Severe functional impairment Progress Toward Problem(s) and Goals/Treatment Plan: * group, milieu and supportive tx * Appreciate f/u by Dr. Diez and Dr. Castillo on 06/03/18~signed off. * klonopin was discontinued * Xanax 0.5 mg twice a day as well as at the nighttime for anxiety * pamelor 25 mg po TID, increase to 50 mg po AM, 25 mg PM and 25 mg HS as tolerated for anxiety. Patient was cautioned about the dangers of overdosing on this medication. * Consider naltrexone for opiate/alcohol use however patient denies that he is dependent. Feels his main problem is anxiety. * Family involvement * Possible inpatient rehab * Follow up on labs Will monitor closely Pt was educated about risk/benefits and alternatives of medications, coping strategies (safety plan, suicide prevention), relapse prevention, importance of follow up with psychiatrist and therapist, stay away from drugs/alcohol/smoking Estimated Date of D/C: 06/08/18
[2018-06-04] MEDS: Albuterol HFA 90 mcg/actuation (8 g) IH PRN (17:04)
--- NOTE | 2018-06-04 17:19 | CP.PCM.PCO ---
Assessment/Plan Progress Note - Assessment/Plan Assessment (Free Text): Edwin ngyuễn was called. Pt was complaining of shortness of breath and was asking for rescue inhaler that he claims he normally takes. Pt was agitated. Albuterol was provided
[2018-06-05] MEDS: Arformoterol 15 mcg/2 ml Inh Sol IH SCH ×2 (07:51→22:54)
[2018-06-05] MEDS: Budesonide 0.5 mg/2 ml Inhal Susp UD IH SCH ×2 (07:51→22:54)
--- NOTE | 2018-06-05 12:08 | CP.PCM.PN ---
<Ayleen Castillo - Last Filed: 06/05/18 12:05> Subjective - Date & Time of Evaluation Date of Evaluation: 06/05/18 Time of Evaluation: 12:05 - Subjective Subjective: Hospitalist Progress Note for Meek Gabriel PGY3 Patient seen and examined at bedside. Yesterday patient had code oconnell called for agitation because patient wanted his inhaler. He is resting comfortably in bed today. He denies chest pain, shortness of breath, nausea/vomiting/diarrhea, fever/chills, vision changes, numbness or tingling. Medicine team asked for re- evaluation for elevated blood pressure. Objective - Vital Signs/Intake and Output Vital Signs (last 24 hours): Temp Pulse Resp BP Pulse Ox 98.6 F 73 20 139/92 H 06/05/18 07:16 06/05/18 07:16 06/05/18 07:16 06/05/18 09:45 - Medications Medications: Current Medications Acetaminophen (Tylenol 325mg Tab) 650 mg PO Q6H PRN PRN Reason: Pain, moderate (4-7) Albuterol (Ventolin Hfa 90 Mcg/Actuation (8 G)) 2 puff IH [id number] PRN PRN Reason: Shortness of Breath Last Admin: 06/04/18 17:04 Dose: 2 actuation Albuterol/Ipratropium (Duoneb 3 Mg/0.5 Mg (3 Ml) Ud) 3 ml IH [id number] PRN PRN Reason: Shortness of Breath Alprazolam (Xanax) 1 mg PO HS QUIANA; Protocol Alprazolam (Xanax) 1 mg PO TID QUIANA; Protocol Amlodipine Besylate (Norvasc) 10 mg PO DAILY [facility] Last Admin: 06/05/18 09:45 Dose: 10 mg Arformoterol Tartrate (Brovana) 15 mcg IH [id number] [facility] Last Admin: 06/05/18 07:51 Dose: 15 mcg Aspirin (Ecotrin) 81 mg PO DAILY [facility] Last Admin: 06/05/18 09:47 Dose: 81 mg Budesonide (Pulmicort Respules) 0.5 mg IH [id number] [facility] Last Admin: 06/05/18 07:51 Dose: 0.5 mg Clonidine HCl (Catapres) 0.3 mg PO BID [facility] Last Admin: 06/05/18 06:00 Dose: 0.3 mg Famotidine (Pepcid) 40 mg PO HS [facility] Last Admin: 06/04/18 21:13 Dose: 40 mg Ibuprofen (Motrin Tab) 200 mg PO Q6H PRN PRN Reason: Pain, moderate (4-7) Last Admin: 06/05/18 03:10 Dose: 200 mg Lisinopril (Zestril) 40 mg PO DAILY [facility] Last Admin: 06/05/18 09:47 Dose: 40 mg Nicotine (Nicoderm Cq) 1 patch TD DAILY [facility] Last Admin: 06/05/18 09:44 Dose: 1 patch Nortriptyline HCl (Pamelor) 25 mg PO TID [facility] Last Admin: 06/05/18 09:47 Dose: 25 mg Prednisone (Prednisone Tab) 10 mg PO DAILY [facility]; Taper Stop: 06/07/18 07:59 Last Admin: 06/05/18 09:44 Dose: 10 mg - Constitutional Appears: No Acute Distress - Head Exam Head Exam: ATRAUMATIC, NORMAL INSPECTION, NORMOCEPHALIC - Eye Exam Eye Exam: Normal appearance, PERRL Pupil Exam: NORMAL ACCOMODATION, PERRL - ENT Exam ENT Exam: Mucous Membranes Moist - Respiratory Exam Respiratory Exam: Wheezes (bilateral ), NORMAL BREATHING PATTERN. absent: Rales, Rhonchi, Respiratory Distress - Cardiovascular Exam Cardiovascular Exam: REGULAR RHYTHM, +S1, +S2. absent: Gallop, Rubs, Murmur - GI/Abdominal Exam GI & Abdominal Exam: Soft, Normal Bowel Sounds. absent: Rigid, Tenderness, Mass, Rebound - Extremities Exam Extremities Exam: Normal Inspection. absent: Calf Tenderness, Pedal Edema - Neurological Exam Neurological Exam: Alert, Awake, CN II-XII Intact, Oriented x3 - Psychiatric Exam Psychiatric exam: Normal Affect, Normal Mood - Skin Skin Exam: Dry, Intact, Warm Assessment and Plan - Assessment and Plan (Free Text) Assessment: This is a 52yo male with past medical history of COPD (intubated 2013), asthma, HTN, anxiety/depression, sciatica, panic attacks, polysubstance abuse who was admitted to the floor for COPD exacerbation. Patient's breathing improved with breathing treatment and steroids. ACS was ruled out. Patient transferred to psych for anxiety. Plan: 1. Anxiety - management as per psych team - Continue Xanax 2. COPD exacerbation - Pt had slight wheezing today - will change Duonebs to q6 scheduled - Continue Brovana/Pulmicort - Duoneb prn - Continue prednisone taper as ordered 3. HTN - Pt's BP was checked with Large cuff and noted to be 131/94 - Will continue medication (Norvasc, Clonidine, Lisinopril)- no need for adjustment at this time. - Recommend to use large cuff for BP monitoring - will continue to monitor 4. Back pain (Chronic) - Continue Pamelor - continue Motrin and tylenol prn - Continue physical therapy 5. Polysubatance abuse - counseled on drug cessation 6. Tobacco abuse - Counseled on smoking cessation - Nicoderm patch Thank you for this consultation. Will sign off at this time. Please re-consult if needed. Case seen, discussed and reviewed with Dr. Humberto Castillo PGY3 <Leonardo Paul - Last Filed: 06/07/18 17:29> Objective - Vital Signs/Intake and Output Vital Signs (last 24 hours): Temp Pulse Resp BP Pulse Ox 98.7 F 96 H 18 146/97 H 98 06/07/18 08:35 06/07/18 16:00 06/07/18 09:53 06/07/18 16:00 06/07/18 08:35 - Medications Medications: Current Medications Acetaminophen (Tylenol 325mg Tab) 650 mg PO Q6H PRN PRN Reason: Pain, moderate (4-7) Last Admin: 06/07/18 15:10 Dose: 650 mg Albuterol (Ventolin Hfa 90 Mcg/Actuation (8 G)) 2 puff IH [id number] PRN PRN Reason: Shortness of Breath Last Admin: 06/07/18 11:09 Dose: 1 actuation Albuterol/Ipratropium (Duoneb 3 Mg/0.5 Mg (3 Ml) Ud) 3 ml IH [id number] [facility]IA[facility] Last Admin: 06/07/18 14:07 Dose: Not Given Alprazolam (Xanax) 2 mg PO AMHS QUIANA; Protocol Amlodipine Besylate (Norvasc) 10 mg PO DAILY [facility] Last Admin: 06/07/18 08:56 Dose: 10 mg Arformoterol Tartrate (Brovana) 15 mcg IH [id number] [facility] Last Admin: 06/07/18 09:31 Dose: Not Given Aspirin (Ecotrin) 81 mg PO DAILY [facility] Last Admin: 06/07/18 08:56 Dose: 81 mg Budesonide (Pulmicort Respules) 0.5 mg IH [id number] [facility] Last Admin: 06/07/18 09:31 Dose: Not Given Clonidine HCl (Catapres) 0.3 mg PO BID [facility] Last Admin: 06/07/18 15:12 Dose: 0.3 mg Famotidine (Pepcid) 40 mg PO HS [facility] Last Admin: 06/06/18 21:25 Dose: 40 mg Hydrochlorothiazide (Microzide) 12.5 mg PO DAILY [facility] Last Admin: 06/07/18 08:56 Dose: 12.5 mg Ibuprofen (Motrin Tab) 200 mg PO Q6H PRN PRN Reason: Pain, moderate (4-7) Last Admin: 06/06/18 21:25 Dose: 200 mg Lisinopril (Zestril) 40 mg PO DAILY [facility] Last Admin: 06/07/18 08:56 Dose: 40 mg Nicotine (Nicoderm Cq) 1 patch TD DAILY [facility] Last Admin: 06/07/18 08:55 Dose: 1 patch Paroxetine HCl (Paxil) 10 mg PO HS [facility] Zolpidem Tartrate (Ambien) 5 mg PO HS PRN; Protocol PRN Reason: Insomnia Attending/Attestation - Attestation I have personally seen and examined this patient.: Yes I have fully participated in the care of the patient.: Yes I have reviewed all pertinent clinical information, including history, physical exam and plan: Yes Notes (Text): 06/07/18 17:29 Medical record note made by the resident after discussion with my direction and input after the patient was personally seen and examined by me. I have reviewed the chart and agree that the record accurately reflects by personal performance of the history, physical exam, data review, and medical decision-making, in the course for the patient. I have also personally directed the plan of care.
[2018-06-05] MEDS: Albuterol HFA 90 mcg/actuation (8 g) IH PRN (13:53)
[2018-06-05] MEDS: Albuterol-Ipratrop 3 mg / 0.5 (3 ml) UD IH SCH ×2 (14:15→22:54)
--- NOTE | 2018-06-05 15:01 | PCM.PYCHPN ---
Psychiatric Progress Note - Psychiatric Progress Note Patient seen today, length of contact: 30 minutes Patient Chief Complaint: "I was not doing very well, my blood pressure is going up, I feel sweating, I might be withdrawing from benzos" Problems Identified/Issues Discussed: Suicide/ homicide prevention, past psychiatric h/o, current psychiatric symptoms, medical problems, risk/benefits and alternatives of medications, medications compliance, coping strategies, substance abuse h/o, relapse prevention, importance of follow up with psychiatrist and therapist, discharge plan. Medical Problems: COPD, asthma, hypertension, chronic back pain, please see medical team notes for more detailed information Diagnostic Results: Vital Signs Temp Pulse Pulse Pulse Resp BP 06/04/18 09:40 98 H 154/97 H 06/04/18 09:29 154/97 H 06/04/18 09:25 98 H 154/97 H 06/03/18 16:06 88 122/75 06/03/18 16:00 88 122/75 06/03/18 10:00 85 17 106/62 06/03/18 08:29 100 H 145/101 H 06/03/18 07:54 148/108 H 06/03/18 07:52 93 H 148/108 H 06/03/18 07:00 98.7 F 93 H 16 145/108 H 06/03/18 03:25 91 H 91 H 20 DSM 5 Symptoms Update: patient is a single 52-year-old -[place] male with a history of depression and anxiety, opiate, cocaine and alcohol abuse, one prior admission at [facility] in 2012 as well as consultation by Dr. Melton on the medical floor prior to this admission, who was transferred from the medical floor on 06/02/18 for treatment of anxiety. Patient presented to the ER on 05/30/18 with complaints of chest pain. He was medically stabilized from 05/30/18-06/02/18 for COPD exacerbation and ACS was ruled out. 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 Patient was seen and examined today in his room with mental health worker, patient presented to be withdrawn, depressed, irritable, paranoid, patient complained that he might be withdrawing from benzodiazepines, "I was using 2 mg of Xanax twice a day" yesterday patient was agitated code Lonnie was called, patient was demanding to be on inhailer, patient's impulses are obviously unpredictable. pt is aware that xanax will be weaned off, agreed with plan. Patient presented to be flat and disengaged, pt reported to be depressed and hopeless. As per staff patient is self isolating, not participating in unit activities. So far patient tolerates medications well, no side effects observed or reported, aims 0, no EPS. 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 Medication Change: Yes (xanax 1mg po qid) Medical Record Reviewed: Yes Mental Status Examination - Cognitive Function Orientation: Person, Place, Situation Memory: Intact Attention: Poor Concentration: Poor Association: WNL Fund of Knowledge: WNL - Mood Mood: Depressed, Anxious - Affect Affect: Other (anxious) - Formal Thought Process Formal Thought Process: No Impairment - Suicidal Ideation Suicidal Ideation: No - Homicidal Ideation Homicidal Ideation: No Goal/Treatment Plan - Goal/Treatment Plan Need for Continued Stay: Remain at risks for inpatient hospitalization, Severe depression anxiety, Discharge may exacerbated symptoms, Severe functional impairment Progress Toward Problem(s) and Goals/Treatment Plan: * group, milieu and supportive tx * Appreciate f/u by Dr. Diez and Dr. Castillo on 06/05/18~signed off. * klonopin was discontinued * Xanax 1mg po qid for benzos withdrawal and anxiety * pamelor 25 mg po TID, increase to 50 mg po AM, 25 mg PM and 25 mg HS as tolerated for anxiety. Patient was cautioned about the dangers of overdosing on this medication. * Consider naltrexone for opiate/alcohol use however patient denies that he is dependent. Feels his main problem is anxiety. * Family involvement * Possible inpatient rehab * Follow up on labs Will monitor closely Pt was educated about risk/benefits and alternatives of medications, coping strategies (safety plan, suicide prevention), relapse prevention, importance of follow up with psychiatrist and therapist, stay away from drugs/alcohol/smoking Estimated Date of D/C: 06/08/18
[2018-06-06] MEDS: Albuterol-Ipratrop 3 mg / 0.5 (3 ml) UD IH SCH ×4 (01:00→22:11)
[2018-06-06] MEDS: Albuterol HFA 90 mcg/actuation (8 g) IH PRN (01:10)
[2018-06-06] MEDS: Budesonide 0.5 mg/2 ml Inhal Susp UD IH SCH ×2 (08:07→22:12)
[2018-06-06] MEDS: Arformoterol 15 mcg/2 ml Inh Sol IH SCH ×2 (08:07→22:10)
--- NOTE | 2018-06-06 15:10 | PCM.PYCHPN ---
Psychiatric Progress Note - Psychiatric Progress Note Patient seen today, length of contact: 30 minutes Patient Chief Complaint: "I think that I was withdrawing from the benzodiazepines, now I cannot sleep, I feel very restless" Problems Identified/Issues Discussed: Suicide/ homicide prevention, past psychiatric h/o, current psychiatric symptoms, medical problems, risk/benefits and alternatives of medications, medications compliance, coping strategies, substance abuse h/o, relapse prevention, importance of follow up with psychiatrist and therapist, discharge plan. Medical Problems: COPD, asthma, hypertension, chronic back pain, please see medical team notes for more detailed information Diagnostic Results: Vital Signs Temp Pulse Pulse Pulse Resp BP 06/04/18 09:40 98 H 154/97 H 06/04/18 09:29 154/97 H 06/04/18 09:25 98 H 154/97 H 06/03/18 16:06 88 122/75 06/03/18 16:00 88 122/75 06/03/18 10:00 85 17 106/62 06/03/18 08:29 100 H 145/101 H 06/03/18 07:54 148/108 H 06/03/18 07:52 93 H 148/108 H 06/03/18 07:00 98.7 F 93 H 16 145/108 H 06/03/18 03:25 91 H 91 H 20 DSM 5 Symptoms Update: patient is a single 52-year-old -[place] male with a history of depression and anxiety, opiate, cocaine and alcohol abuse, one prior admission at [facility] in 2012 as well as consultation by Dr. Melton on the medical floor prior to this admission, who was transferred from the medical floor on 06/02/18 for treatment of anxiety. Patient presented to the ER on 05/30/18 with complaints of chest pain. He was medically stabilized from 05/30/18-06/02/18 for COPD exacerbation and ACS was ruled out. Patient was seen by as a management consultant on 06/01/18 and 06/02/18, pt was started on klonopin 1 mg po q6 prn to address his complaints of anxiety, which was switched to xanax 1mg po qid (equivalence of klonopin to xanax 1:1). Patient was seen and examined today in his room with mental health worker, patient presented to be withdrawn, depressed, irritable, patient complaining of insomnia, patient reported that she feels "restless", no agitation, no aggression, June 04 patient was agitated, adriano Fleming was called, impulses are still unpredictable. Patient presented to be flat and disengaged, pt reported to be depressed and hopeless. As per staff patient is self isolating, not participating in unit activities. So far patient tolerates medications well, no side effects observed or reported, aims 0, no EPS. 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 Medication Change: Yes (Trazodone at the nighttime) Medical Record Reviewed: Yes Consults ordered or reviewed: medical consult appreciated Please see notes for more detailed information Mental Status Examination - Cognitive Function Orientation: Person, Place, Situation Memory: Intact Attention: Poor Concentration: Poor Association: WNL Fund of Knowledge: WNL - Mood Mood: Depressed, Anxious - Affect Affect: Other (anxious) - Formal Thought Process Formal Thought Process: No Impairment - Suicidal Ideation Suicidal Ideation: No - Homicidal Ideation Homicidal Ideation: No Goal/Treatment Plan - Goal/Treatment Plan Need for Continued Stay: Remain at risks for inpatient hospitalization, Severe depression anxiety, Discharge may exacerbated symptoms, Severe functional impairment Progress Toward Problem(s) and Goals/Treatment Plan: * group, milieu and supportive tx * Appreciate f/u by Dr. Diez and Dr. Castillo on 06/05/18~signed off. * klonopin was discontinued * Xanax 1mg po qid for benzos withdrawal and anxiety * pamelor 25 mg po TID, increase to 50 mg po AM, 25 mg PM and 25 mg HS as tolerated for anxiety. Patient was cautioned about the dangers of overdosing on this medication. * Consider naltrexone for opiate/alcohol use however patient denies that he is dependent. Feels his main problem is anxiety. * Trazodone at the nighttime for depression and insomnia * Family involvement * Possible inpatient rehab * Follow up on labs Will monitor closely Pt was educated about risk/benefits and alternatives of medications, coping strategies (safety plan, suicide prevention), relapse prevention, importance of follow up with psychiatrist and therapist, stay away from drugs/alcohol/smoking Estimated Date of D/C: 06/08/18
[2018-06-07] MEDS: Albuterol-Ipratrop 3 mg / 0.5 (3 ml) UD IH SCH ×3 (01:42→14:07)
[2018-06-07 08:52] VITALS: O2SAT 98
[2018-06-07] MEDS: Arformoterol 15 mcg/2 ml Inh Sol IH SCH (09:31)
[2018-06-07] MEDS: Budesonide 0.5 mg/2 ml Inhal Susp UD IH SCH (09:31)
[2018-06-07] MEDS: Albuterol HFA 90 mcg/actuation (8 g) IH PRN (11:09)
--- NOTE | 2018-06-07 14:26 | PCM.PYCHPN ---
Psychiatric Progress Note - Psychiatric Progress Note Patient seen today, length of contact: 30 minutes Patient Chief Complaint: "I think your medications not working, you have to give me something else, I am very restless and agitated, I want to sleep but I cannot..." Problems Identified/Issues Discussed: Suicide/ homicide prevention, past psychiatric h/o, current psychiatric symptoms, medical problems, risk/benefits and alternatives of medications, medications compliance, coping strategies, substance abuse h/o, relapse prevention, importance of follow up with psychiatrist and therapist, discharge plan. Medical Problems: COPD, asthma, hypertension, chronic back pain, please see medical team notes for more detailed information Diagnostic Results: Vital Signs Temp Pulse Pulse Pulse Resp BP 06/04/18 09:40 98 H 154/97 H 06/04/18 09:29 154/97 H 06/04/18 09:25 98 H 154/97 H 06/03/18 16:06 88 122/75 06/03/18 16:00 88 122/75 06/03/18 10:00 85 17 106/62 06/03/18 08:29 100 H 145/101 H 06/03/18 07:54 148/108 H 06/03/18 07:52 93 H 148/108 H 06/03/18 07:00 98.7 F 93 H 16 145/108 H 06/03/18 03:25 91 H 91 H 20 DSM 5 Symptoms Update: patient is a single 52-year-old -Lithuanian male with a history of depression and anxiety, opiate, cocaine and alcohol abuse, one prior [place] [facility] as well as consultation by Dr. Melton on the medical floor prior to this admission, who was transferred from the medical floor on 06/02/18 for treatment of anxiety. Patient presented to the ER on 05/30/18 with complaints of chest pain. He was medically stabilized from 05/30/18-06/02/18 for COPD exacerbation and ACS was ruled out. Patient was seen by as a commercial solar sales consultant on 06/01/18 and 06/02/18, pt was started on klonopin 1 mg po q6 prn to address his complaints of anxiety, which was switched to xanax 1mg po qid (equivalence of klonopin to xanax 1:1). Patient was seen and examined today in his room with mental health worker, patient presented to be withdrawn, depressed, irritable, patient still complaining of insomnia, patient reported that he feels "restless", pt was exaggerating his symptoms, reported "Once I was intubated for my anxiety, be aware of that...", most likely pt was intubated for COPD. Patient presented to be flat and disengaged, pt reported to be depressed and hopeless. As per staff patient is self isolating, not participating in unit activities. So far patient tolerates medications well, no side effects observed or reported, aims 0, no EPS. 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 Medication Change: Yes (trazodone d/c, paxil started) Medical Record Reviewed: Yes Consults ordered or reviewed: medical consult appreciated Please see notes for more detailed information Mental Status Examination - Cognitive Function Orientation: Person, Place, Situation Memory: Intact Attention: Poor Concentration: Poor Association: WNL Fund of Knowledge: WNL - Mood Mood: Depressed, Anxious - Affect Affect: Other (anxious) - Formal Thought Process Formal Thought Process: No Impairment - Suicidal Ideation Suicidal Ideation: No - Homicidal Ideation Homicidal Ideation: No Goal/Treatment Plan - Goal/Treatment Plan Need for Continued Stay: Remain at risks for inpatient hospitalization, Severe depression anxiety, Discharge may exacerbated symptoms, Severe functional impairment Progress Toward Problem(s) and Goals/Treatment Plan: * group, milieu and supportive tx * Appreciate f/u by Dr. Diez and Dr. Castillo on 06/05/18~signed off. * klonopin was discontinued * Xanax 2mg amhs for benzos withdrawal and anxiety * pamelor d/c * paxil 20mg po hs for depression and anxiety * Consider naltrexone for opiate/alcohol use however patient denies that he is dependent. Feels his main problem is anxiety. * Trazodone d/c * ambien started * Family involvement * Possible inpatient rehab * Follow up on labs Will monitor closely Pt was educated about risk/benefits and alternatives of medications, coping strategies (safety plan, suicide prevention), relapse prevention, importance of follow up with psychiatrist and therapist, stay away from drugs/alcohol/smoking Estimated Date of D/C: 06/11/18
[2018-06-07] MEDS ORDERED: Alum-Mag Hydrox-Simethicone Susp (30 mL) PO PRN (22:09)
[2018-06-08] MEDS: Budesonide 0.5 mg/2 ml Inhal Susp UD IH SCH (07:31)
[2018-06-08] MEDS: Albuterol-Ipratrop 3 mg / 0.5 (3 ml) UD IH SCH ×2 (07:31→13:20)
[2018-06-08] MEDS: Arformoterol 15 mcg/2 ml Inh Sol IH SCH (07:31)
--- NOTE | 2018-06-08 14:30 | PCM.PYCHPN ---
Psychiatric Progress Note - Psychiatric Progress Note Patient seen today, length of contact: 30 minutes Patient Chief Complaint: "I slept little better, let me tell you something, I was noncompliant with my medications, I was arrested, in retirement they gave me some medications which I did not continue on, now I want to go back to [facility], I will see my psychiatrist, they helped me a lot..." Problems Identified/Issues Discussed: Suicide/ homicide prevention, past psychiatric h/o, current psychiatric symptoms, medical problems, risk/benefits and alternatives of medications, medications compliance, coping strategies, substance abuse h/o, relapse prevention, importance of follow up with psychiatrist and therapist, discharge plan. Medical Problems: COPD, asthma, hypertension, chronic back pain, please see medical team notes for more detailed information Diagnostic Results: Vital Signs Temp Pulse Pulse Pulse Resp BP 06/04/18 09:40 98 H 154/97 H 06/04/18 09:29 154/97 H 06/04/18 09:25 98 H 154/97 H 06/03/18 16:06 88 122/75 06/03/18 16:00 88 122/75 06/03/18 10:00 85 17 106/62 06/03/18 08:29 100 H 145/101 H 06/03/18 07:54 148/108 H 06/03/18 07:52 93 H 148/108 H 06/03/18 07:00 98.7 F 93 H 16 145/108 H 06/03/18 03:25 91 H 91 H 20 DSM 5 Symptoms Update: patient is a single 52-year-old -Fijian male with a history of depression and anxiety, opiate, cocaine and alcohol abuse, one prior admission at [facility] [place] in 2012 as well as consultation by Dr. Melton on the medical floor prior to this admission, who was transferred from the medical floor on 06/02/18 for treatment of anxiety. Patient presented to the ER on 05/30/18 with complaints of chest pain. He was medically stabilized from 05/30/18-06/02/18 for COPD exacerbation and ACS was ruled out. Patient was seen by as a specialty development consultant on 06/01/18 and 06/02/18, pt was started on klonopin 1 mg po q6 prn to address his complaints of anxiety, which was switched to xanax 1mg po qid (equivalence of klonopin to xanax 1:1). Patient was seen and examined today at the treatment team meeting room, this is the first day when this law writer observed pt walking in the unit and participated fully in interview. pt reported that he was noncompliant with meds since released from [facility] in February, pt said prior to his arrest pt was attending [facility], which was "very good, I want to go there". pt reported that he slept well last night, willing to continue meds. pt was educated again about his current meds. pt c/o chronic pain, "shooting pain in my leg from my back", neurontin started. pt seems to be more hopeful for the future. As per staff patient is self isolating, not participating in unit activities. So far patient tolerates medications well, no side effects observed or reported, aims 0, no EPS. 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 Medication Change: Yes (paxil increased, neurontin started) Medical Record Reviewed: Yes Consults ordered or reviewed: medical consult appreciated Please see notes for more detailed information Mental Status Examination - Cognitive Function Orientation: Person, Place, Situation Memory: Intact Attention: Poor Concentration: Poor Association: WNL Fund of Knowledge: WNL - Mood Mood: Depressed, Anxious - Affect Affect: Other (anxious) - Formal Thought Process Formal Thought Process: No Impairment - Suicidal Ideation Suicidal Ideation: No - Homicidal Ideation Homicidal Ideation: No Goal/Treatment Plan - Goal/Treatment Plan Need for Continued Stay: Remain at risks for inpatient hospitalization, Severe depression anxiety, Discharge may exacerbated symptoms, Severe functional impairment Progress Toward Problem(s) and Goals/Treatment Plan: * group, milieu and supportive tx * Appreciate f/u by Dr. Diez and Dr. Castillo on 06/05/18~signed off. * klonopin was discontinued * Xanax 2mg amhs for benzos withdrawal and anxiety * pamelor d/c * paxil 20mg po hs for depression and anxiety * Consider naltrexone for opiate/alcohol use however patient denies that he is dependent. Feels his main problem is anxiety. * Trazodone d/c * ambien started * neurontin 300mg po tid for neuropathic pain * Family involvement * Possible inpatient rehab * Follow up on labs Will monitor closely Pt was educated about risk/benefits and alternatives of medications, coping strategies (safety plan, suicide prevention), relapse prevention, importance of follow up with psychiatrist and therapist, stay away from drugs/alcohol/smoking Estimated Date of D/C: 06/11/18
--- NOTE | 2018-06-08 21:33 | PCM.BM ---
Treatment Plan Problems - Problems identified on initial assessmt Anxiety Date Initiated: 06/03/18 Time Initiated: 00:15 Assessment reference: NA Status: Active Panick attacks Date Initiated: 06/03/18 Time Initiated: 00:15 Assessment reference: NA Status: Active Ineffective breathing pattern Date Initiated: 06/03/18 Time Initiated: 00:16 Assessment reference: NA Status: Active Altered sleep pattern Date Initiated: 06/03/18 Time Initiated: 00:16 Assessment reference: NA Status: Active Treatment assets and liabiliti Patient Assests: cooperative, educated, motivated, self-reliant, cognitively intact, good interpersonal skills Patient Liabilities: physical pain, financial problems, dietary restrictions, substance abuse, medical problems, legal issue - Milieu Protocol Maintain good personal hygiene: daily Encourage regular showers, daily Remind patient to perform daily oral care, daily Assist patient to perform ADL's Conduct patient checks and document Observation sheet: Q15 minutes Maintain personal safety: daily Educate patient to report safety concerns to staff, daily Monitor environment for contraband/sharps Medication safety: Monitor for expected outcome, potential side effects: daily, Assess barriers to learning: daily, Assess readiness for medication education: daily Milieu Narrative: * group, milieu and supportive tx * Appreciate f/u by Dr. Diez and Dr. Castillo on 06/05/18~signed off. * klonopin was discontinued * Xanax 2mg amhs for benzos withdrawal and anxiety * pamelor d/c * paxil 20mg po hs for depression and anxiety * Consider naltrexone for opiate/alcohol use however patient denies that he is dependent. Feels his main problem is anxiety. * Trazodone d/c * ambien started * neurontin 300mg po tid for neuropathic pain * Family involvement * Possible inpatient rehab * Follow up on labs Will monitor closely Pt was educated about risk/benefits and alternatives of medications, coping strategies (safety plan, suicide prevention), relapse prevention, importance of follow up with psychiatrist and therapist, stay away from drugs/alcohol/smoking Family Contact Family involvement: Famliy/SO not involved Discharge/Continuing Care - Education Needs Education Needs: Patient Medication, Patient Diagnosis/Disease Process, Patient Coping Skills, Patient Anger Management skills, Patient Activities of Daily Living, Patient Pain, Patient Nutrition, Patient Uses of Medical Equipment, Patient Health Practices/Safety, Patient Personal Hygiene/Grooming, Patient Aftercare Safety Plan - Discharge Discharge Criteria: Tolerates medication w/o severe side effects, Free of agitation, Normal sleep pattern, Ability to care for self Discharge to:: Home - Treatment Team Participation Patient/Family/SO Statement: * group, milieu and supportive tx * Appreciate f/u by Dr. Diez and Dr. Castillo on 06/05/18~signed off. * klonopin was discontinued * Xanax 2mg amhs for benzos withdrawal and anxiety * pamelor d/c * paxil 20mg po hs for depression and anxiety * Consider naltrexone for opiate/alcohol use however patient denies that he is dependent. Feels his main problem is anxiety. * Trazodone d/c * ambien started * neurontin 300mg po tid for neuropathic pain * Family involvement * Possible inpatient rehab * Follow up on labs Will monitor closely Pt was educated about risk/benefits and alternatives of medications, coping strategies (safety plan, suicide prevention), relapse prevention, importance of follow up with psychiatrist and therapist, stay away from drugs/alcohol/smoking Treatment Plan Review - Problem Anxiety Time Initiated: 00:15 Panick attacks Time Initiated: 00:15 Ineffective breathing pattern Time Initiated: 00:16 Altered sleep pattern Time Initiated: 00:16
[2018-06-09] MEDS: Arformoterol 15 mcg/2 ml Inh Sol IH SCH ×2 (08:24→22:16)
[2018-06-09] MEDS: Budesonide 0.5 mg/2 ml Inhal Susp UD IH SCH ×2 (08:24→22:17)
[2018-06-09] MEDS: Albuterol-Ipratrop 3 mg / 0.5 (3 ml) UD IH SCH ×3 (08:24→22:16)
[2018-06-09] MEDS: Acetaminophen 650mg/20.3ml solution UD PO SCH ×3 (11:12→22:37)
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
[2018-06-10] MEDS: Albuterol-Ipratrop 3 mg / 0.5 (3 ml) UD IH SCH ×5 (01:25→22:39)
[2018-06-10] MEDS: Arformoterol 15 mcg/2 ml Inh Sol IH SCH ×2 (08:02→22:39)
[2018-06-10] MEDS: Budesonide 0.5 mg/2 ml Inhal Susp UD IH SCH ×2 (08:02→22:39)
[2018-06-10] MEDS: Acetaminophen 650mg/20.3ml solution UD PO SCH ×3 (08:33→21:15)
--- NOTE | 2018-06-10 12:32 | PCM.PYCHPN ---
Psychiatric Progress Note - Psychiatric Progress Note Patient seen today, length of contact: 30 minutes Patient Chief Complaint: "Can you fill my disability papers?" Problems Identified/Issues Discussed: Suicide/ homicide prevention, past psychiatric h/o, current psychiatric symptoms, medical problems, risk/benefits and alternatives of medications, medications compliance, coping strategies, substance abuse h/o, relapse prevention, importance of follow up with psychiatrist and therapist, discharge plan. Medical Problems: COPD, asthma, hypertension, chronic back pain, please see medical team notes for more detailed information Diagnostic Results: Vital Signs Temp Pulse Pulse Pulse Resp BP 06/04/18 09:40 98 H 154/97 H 06/04/18 09:29 154/97 H 06/04/18 09:25 98 H 154/97 H 06/03/18 16:06 88 122/75 06/03/18 16:00 88 122/75 06/03/18 10:00 85 17 106/62 06/03/18 08:29 100 H 145/101 H 06/03/18 07:54 148/108 H 06/03/18 07:52 93 H 148/108 H 06/03/18 07:00 98.7 F 93 H 16 145/108 H 06/03/18 03:25 91 H 91 H 20 DSM 5 Symptoms Update: patient is a single 52-year-old -Kos[place] male with a history of depression and anxiety, opiate, cocaine and alcohol abuse, one prior admission at [facility] [place] in 2012 as well as consultation by Dr. Melton on the medical floor prior to this admission, who was transferred from the medical floor on 06/02/18 for treatment of anxiety. Patient presented to the ER on 05/30/18 with complaints of chest pain. He was medically stabilized from 05/30/18-06/02/18 for COPD exacerbation and ACS was ruled out. Patient was seen by as a life consultant on 06/01/18 and 06/02/18, pt was started on klonopin 1 mg po q6 prn to address his complaints of anxiety, which was switched to xanax 1mg po qid (equivalence of klonopin to xanax 1:1). Patient was seen and examined today in the dining area, patient presented with good personal hygiene, observed eating 100% of his meal, patient is asking about disability paper to be filled, this engineering technical writer refused to do so, off note it was discussed 06/09/18. Patient was advised to follow-up at [place] [facility].patient is neatly, requested to have some brace on his right leg, physical therapy will be called for evaluation. So far patient is improving, anxiety is better controlled, sleeping is better, patient denied any thoughts of harming himself or others, patient is not psychotic. Yesterday 06/09/2018 patient was tearful, patient also was asking rhetorical questions what to do in his life, patient was talking about his [facility] experience, by the end of the conversation patient asked this engineering technical writer to submit disability paper, which gives this engineering technical writer impression that secondary gain cannot be excluded. This engineering technical writer advised patient to look for professional services in the community, this engineering technical writer will be not able to feel any disability papers for him. So far patient tolerates medications well, no side effects observed or reported, aims 0, no EPS. pt seems to be more hopeful for the future. As per staff patient is more visible in the unit, no agitation, no aggression. 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 r/o malingering Medication Change: Yes (paxil increased, neurontin started) Medical Record Reviewed: Yes Mental Status Examination - Cognitive Function Orientation: Person, Place, Situation Memory: Intact Attention: Poor (Some improvement) Concentration: Poor (Some improvement) Association: WNL Fund of Knowledge: WNL - Mood Mood: Depressed ("I am going to make her choices in my life, I want to get better), Anxious - Affect Affect: Other (anxious) - Formal Thought Process Formal Thought Process: No Impairment - Suicidal Ideation Suicidal Ideation: No - Homicidal Ideation Homicidal Ideation: No Goal/Treatment Plan - Goal/Treatment Plan Need for Continued Stay: Remain at risks for inpatient hospitalization, Severe depression anxiety, Discharge may exacerbated symptoms, Severe functional impairment Progress Toward Problem(s) and Goals/Treatment Plan: * group, milieu and supportive tx * Appreciate f/u by Dr. Diez and Dr. Castillo on 06/05/18~signed off. * klonopin was discontinued * Xanax 2mg amhs for benzos withdrawal and anxiety * pamelor d/c * paxil 20mg po hs for depression and anxiety * Consider naltrexone for opiate/alcohol use however patient denies that he is dependent. Feels his main problem is anxiety. * Trazodone d/c * ambien started * neurontin 300mg po tid for neuropathic pain * Family involvement * Possible inpatient rehab but patient refused, * Follow up on labs Will monitor closely Pt was educated about risk/benefits and alternatives of medications, coping strategies (safety plan, suicide prevention), relapse prevention, importance of follow up with psychiatrist and therapist, stay away from drugs/alcohol/smoking Estimated Date of D/C: 06/11/18
[2018-06-11] MEDS: Albuterol-Ipratrop 3 mg / 0.5 (3 ml) UD IH SCH ×2 (01:20→08:18)
[2018-06-11 07:28] VITALS: BP 134/95; PULSE 95; RESP 20; TEMP 98
[2018-06-11] MEDS: Budesonide 0.5 mg/2 ml Inhal Susp UD IH SCH (08:18)
[2018-06-11] MEDS: Arformoterol 15 mcg/2 ml Inh Sol IH SCH (08:19)
[2018-06-11] MEDS: Acetaminophen 650mg/20.3ml solution UD PO SCH ×2 (09:20→13:17)
--- NOTE | 2018-06-11 12:38 | PCM.PYCHDC ---
Mental Status Examination - Mental Status Examination Orientation: Person, Place, Situation, Time Memory: Intact Mood: Neutral Affect: Constricted Speech: Appropriate Attention: WNL (Much better) Concentration: WNL (Much better) Association: WNL Fund of Knowledge: WNL Formal Thought Process: No Impairment Description of patient's judgement and insight: Pt has improved insight into mental illness, but has limited insight into his substance abuse, patient reported "I am just using a little", still this advertising copy writer advised patient to follow-up with dual diagnosis program. Patient has very good insight into his medical issues. Patient was compliant with medications and unit rules and regulations, pt was going to groups, was calm, cooperative, socially appropriate, no behavioral incidents, no agitation, no aggression. Psychotic Thoughts and Behaviors: Pt denied v/a/t hallucinations, denied paranoid ideations, pt does not appear to be psychotic, and thought process is goal directed. Suicidal Ideation: No Current Homicidal Ideation?: No Plan: pt adamantly denied thoughts of harming self or others denied intent or plan. Discharge Summary - Discharge Note Reason for Hospitalization: Patient was transferred from the medical floor for evaluation and stabilization of uncontrolled anxiety as well as depression. Please see Dr. Reynoso's note for more detailed information. Psychiatric History (includes Medical, Family, Personal Hx): Patient has history of anxiety, substance abuse. Laboratory Data: Vital Signs Temp Pulse Pulse Pulse Resp BP Pulse Ox 06/11/18 09:27 134/95 H 06/11/18 09:25 95 H 134/95 H 06/11/18 07:27 98.0 F 95 H 20 134/95 H 06/10/18 16:00 99 H 119/68 06/10/18 08:43 146/95 H 06/10/18 08:35 92 H 146/95 H 06/09/18 17:47 82 142/75 06/09/18 09:35 138/94 H 06/09/18 09:33 90 138/94 H 06/09/18 07:00 98.7 F 90 19 138/94 H 06/08/18 17:23 93 H 114/83 06/08/18 09:53 92 H 141/84 06/08/18 07:26 97.6 F 92 H 20 141/84 06/08/18 07:24 97.6 F 92 H 20 141/84 06/07/18 16:00 96 H 146/97 H 06/07/18 15:12 96 H 122/75 06/07/18 09:53 96 H 18 122/75 06/07/18 08:56 153/102 H 06/07/18 08:55 101 H 153/102 H 06/07/18 08:35 98.7 F 101 H 18 153/102 H 98 06/06/18 17:03 90 113/71 06/06/18 16:00 90 113/71 06/06/18 09:29 85 124/89 06/06/18 07:08 97.1 F L 85 20 124/89 06/05/18 17:03 93 H 135/99 H 06/05/18 15:00 93 H 135/99 H 06/05/18 09:45 139/92 H 06/05/18 07:16 98.6 F 73 20 139/92 H 06/05/18 06:00 87 155/110 H 06/05/18 03:13 84 146/104 H 06/05/18 00:05 88 150/106 H 06/04/18 22:55 82 149/105 H 06/04/18 16:04 80 130/104 H 06/04/18 09:40 98 H 154/97 H 06/04/18 09:29 154/97 H 06/04/18 09:25 98 H 154/97 H 06/03/18 16:06 88 122/75 06/03/18 16:00 88 122/75 06/03/18 10:00 85 17 106/62 06/03/18 08:29 100 H 145/101 H 06/03/18 07:54 148/108 H 06/03/18 07:52 93 H 148/108 H 06/03/18 07:00 98.7 F 93 H 16 145/108 H 06/03/18 03:25 91 H 91 H 20 Consultations:: List each consultation separately and include: 1. Reason for request. 2. Findings. 3. Follow-up Consultations: medical consult appreciated Please see notes for more detailed information Summary of Hospital Course include:: 1. Description of specific treatment plan utilized for patients during their course of treatmen. 2. Summarize the time- course for resolution of acute symptoms and/or regressed behaviors. 3. Describe issues identified and worked on during hospitalization. 4. Describe medication utilized. 5. Describe medical problems identified and treated. 6. Reassessment of suicide risk Summary of Hospital Course: Patient is a single 52-year-old -[place] male with a history of depression and anxiety, opiate, cocaine and alcohol abuse, one prior [place] [facility] [place] as well as consultation by Dr. Melton on the medical floor prior to this admission, who was transferred from the medical floor on 06/02/18 for treatment of anxiety. Patient presented to the ER on 05/30/18 with complaints of chest pain. He was medically stabilized from 05/30/18-06/02/18 for COPD exacerbation and ACS was ruled out. 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 This provider started klonopin 1 mg po q6 prn to address his complaints of anxiety (though patient reported preference for xanax). Patient reported that he has been suffering from anxiety and panic attacks for many years. This has been treated successfully in the past with xanax 2 mg po bid however patient is not currently in any psychiatric treatment. Recently, patient has been experiencing daily panic episodes which consist of shortness of breath, acute feelings of doom, lightheadedness, chest palpitations and extremity numbness. Patient reports that he has been using heroin to help with this anxiety. He also uses cocaine recreationally. Denies that he is addicted to these substances. Please see admission note for more detailed information. Patient was stabilized on the following medications: * Xanax 2mg amhs for benzos withdrawal and anxiety * Initially patient was on Klonopin but was not improving on it * pamelor d/c because patient was not improving moment * paxil 20mg po hs for depression and anxiety * This advertising copy writer educated patient about naltrexone for opiate/alcohol use, however patient denies that he is dependent. Feels his main problem is anxiety. * Trazodone d/c * ambien for insomnia * neurontin 300mg po tid for neuropathic pain Patient tolerated all medications well, no side effects observed or reported, aims 0, no EPS. Over the weekend patient was asking this advertising copy writer to fill paperwork for disability, this advertising copy writer educated patient to look for professional services as outpatient, patient verbalized understanding. Patient requested to be discharged today, most likely due to the fact that female patient L, P was found in his room. as per report this patient and Santiago Gamez denied any interaction. Pt said that he did not realized that "she walked into my room, I think she is not well mentally". pt said "I didn't come for this, I want to be discharged, I feel much better, thank you for all of your help.." Santiago Gamez's attending was notified about pt's behavior . Over the course of this hospitalization pt was attending groups, pt also had medication management, had therapeutic milieu. Overall pt improved significantly, pt's affect became brighter, pt was less depressed, has realistic future oriented plans "I want go back to work, I want to stay healthy, for now I want to apply for disability.." Pt does not appear to be psychotic, or anxious, pt was socially appropriate, no behavioral issues, pts insight improved as well and soon pt deemed to be ready for discharge. At the time of the discharge patient pose no imminent danger to self or others, will be following up at dual diagnosis program program, information about follow up appointment, time and address provided to the pt, (see note for more detailed information). It is a patient responsibility to follow up with outpatient clinic, PMD as well as specialists. In case patient will need to obtain results of studies pending at discharge, patient was provided with contact information of Psychiatric Inpatient unit [phone] as well as Medical Record Department [phone], as well as [facility] Pediatric Immunologist team [phone]. Nicotine patch was provided naltrexone is not indication for cocaine addiction, that is why it was not given Counseling about smoking and alcohol cessation provided AA meetings as well as [facility] [place] cessation treatment program information was provided by the pt was provided with prescriptions for two weeks and one refill for psychotropic meds and one week for medical meds (see medication reconciliation form) Pt was educated about safety plan in case of worsening of symptoms or in case of suicidal or homicidal ideation call 911 or go to the nearest ER, also was educated to take meds as prescribed and stay away from drugs, pt verbalized understanding. - Diagnosis (1) Anxiety Current Visit: No Status: Chronic Priority: High (2) Polysubstance abuse Current Visit: No Status: Chronic Priority: Medium - Final Diagnosis (DSM 5) Condition upon Discharge: GOOD DSM 5: Rule out substance-induced mood disorder and substance-induced anxiety disorder Disposition: HOME/ ROUTINE Follow-up Treatment Plan: At the time of the discharge patient pose no imminent danger to self or others, will be following up at dual diagnosis program program, information about follow up appointment, time and address provided to the pt, (see note for more detailed information). It is a patient responsibility to follow up with outpatient clinic, PMD as well as specialists. In case patient will need to obtain results of studies pending at discharge, patient was provided with contact information of Psychiatric Inpatient unit [phone] as well as Medical Record Department [phone], as well as [facility] team [phone]. Nicotine patch was provided naltrexone is not indication for cocaine addiction, that is why it was not given Counseling about smoking and alcohol cessation provided AA meetings as well as [facility] [place] treatment [place] information was provided by the pt was provided with prescriptions for two weeks and one refill for psychotropic meds and one week for medical meds (see medication reconciliation form) Pt was educated about safety plan in case of worsening of symptoms or in case of suicidal or homicidal ideation call 911 or go to the nearest ER, also was educated to take meds as prescribed and stay away from drugs, pt verbalized understanding. Prescriptions/Medication Reconciliation: Acetaminophen [Tylenol 325mg tab] 650 mg PO Q6H PRN #30 tab PRN Reason: Pain, Moderate (4-7) Alprazolam [Xanax] 2 mg PO AMHS #14 tab amLODIPine [Norvasc] 10 mg PO DAILY #7 tab Arformoterol [Brovana] 15 mcg IH [id number] #1 neb Aspirin [Ecotrin] 81 mg PO DAILY #7 tabec Budesonide [Pulmicort Respules] 0.5 mg IH [id number] #1 neb cloNIDine [Catapres] 0.3 mg PO BID #14 tab Famotidine [Pepcid] 40 mg PO HS #7 tab Gabapentin [Neurontin] 300 mg PO TID #45 cap hydroCHLOROthiazide [Microzide] 12.5 mg PO DAILY #7 cap Ibuprofen [Motrin Tab] 600 mg PO Q6H PRN #30 tab PRN Reason: severe pain >=8/10 Lisinopril [Zestril] 40 mg PO DAILY #7 tab Nicotine 14 mg/24 hr [Nicoderm CQ] 1 patch TD DAILY #14 patch Paroxetine HCl [Paxil] 20 mg PO 14 #14 tablet Zolpidem [Ambien] 5 mg PO HS PRN #7 tab PRN Reason: Insomnia - Smoking Cessation Smoking Cessation Medication prescribed: Yes - Antipsychotic Medications Pt discharged on 2 or more routine antipsychotic medications: No
== END 2018-06-11 16:05 | disposition home or self-care (01) | DRG 425 ==
LOC: PSYC 22:08
PROVIDERS: ADMIT Psychiatry & Neurology Psychiatry; ATTEND Psychiatry & Neurology Psychiatry
PROC: GZ3ZZZZ Medication Management (ICD-10-PCS; principal; 2018-06-03)
PROC: 3E0F7GC Introduction of Other Therapeutic Substance into Respiratory Tract, Via Natural or Artificial Opening (ICD-10-PCS; 2018-06-03)
DX: F41.1 Generalized anxiety disorder (principal); J44.9 Chronic obstructive pulmonary disease, unspecified; F14.10 Cocaine abuse, uncomplicated; F11.10 Opioid abuse, uncomplicated; F13.239 Sedative, hypnotic or anxiolytic dependence with withdrawal, unspecified; F32.9 Major depressive disorder, single episode, unspecified; I10 Essential (primary) hypertension; G89.29 Other chronic pain; G47.00 Insomnia, unspecified; F41.0 Panic disorder [episodic paroxysmal anxiety]; F17.210 Nicotine dependence, cigarettes, uncomplicated; Z62.810 Personal history of physical and sexual abuse in childhood; Z91.14 Patient's other noncompliance with medication regimen